=== PATIENT | female | born 1955 | race Caucasian/White ===

== ENCOUNTER → 2017-07-20 09:47 | Outpatient (CLI) | payer OTHER, SELFPAY ==
[2017-07-24 18:30] LABS: HPV Reflexed? NOT INDICATED
== END ==
PROVIDERS: Visit Provider Obstetrics & Gynecology
DX: Z12.4 Encounter for screening for malignant neoplasm of cervix (principal)
CPT/HCPCS: 88175; G0145

== ENCOUNTER → 2017-08-21 11:30 | Outpatient (CLI) | payer OTHER, SELFPAY ==
--- NOTE | 2017-08-21 11:33 | BD_ITS ---
STUDY: DUAL ENERGY X-RAY ABSORPTIOMETRY / DXA REASON FOR EXAM: Female, 62 years old. Early menopause. Loss of height. TECHNIQUE: Bone Mineral Density (BMD) measurements of lumbar spine and bilateral hips were obtained. COMPARISON: Comparison is made with prior examination dated May 30, 2011. FINDINGS: Lumbar Spine (L1-L4): g/cm2 (1.086) / T-score (-1.0) / Z-score (0.4) Findings are suggestive of normal bone density with a low fracture risk. Left Femur Total: g/cm2 (0.747) / T-score (-2.1) / Z-score (-1.0) Left Femoral Neck: g/cm2 (0.766) / T-score (-2.0) / Z-score (-0.6) Right Femur Total: g/cm2 (0.816) / T-score (-1.5) / Z-score (-0.5) Right Femoral Neck: g/cm2 (0.805) / T-score (-1.7) / Z-score (-0.4) The T-Scores on the most recent prior examination were: Lumbar Spine (L1-L4): There has been improvement of bone density since the previous examination. Left Femur Total: which represents a worsening of 6.6%. Right Femur Total: which represents a worsening of 2.3%. BD/Dexa Bone Density Study IMPRESSION: The patient is considered osteopenic as outlined below according to World Isra Organization (WHO) criteria with a moderate fracture risk. There has been worsening of bone density since the previous examination. Reference Information: The T-score is the number of standard deviations above or below the standard which is normal for young adults at their peak bone mineral density. The World Health Organization (WHO) interprets the T-scores as follows: Above -1 Normal bone density Between -1 and -2.5 Osteopenia Equal to / or below -2.5 Osteoporosis As a practical clinical guideline, osteopenia may be graded as follows: Mild -1 through -1.5 Moderate -1.6 through -2.0 Severe -2.1 through -2.4 The Z-score is the number of standard deviations above or below age-matched controls. A Z-score of less than -1.5 would be considered abnormal. References: 1. NIH Osteoporosis and Related Bone Diseases http://www.osteo.org 2. International Society for Clinical Densitometry http://www.iscd.org 3. National Osteoporosis Foundation http://www.nof.org Electronically Signed: Fernando Cruz MD at 15:28 EDT Tel [phone], Service support ,
--- NOTE | 2017-08-21 11:52 | BI_ITS ---
MAMMOGRAPHY - BILATERAL SCREENING REASON FOR EXAM: Female, 62 years old. Routine annual screening examination. PERTINENT HISTORY: Aunt with breast cancer. TECHNIQUE: Digital bilateral breast tay (3D mammographic acquisition) in the CC and MLO projections. 2-D mediolateral oblique (MLO) and craniocaudad (CC) views of both breasts were obtained. CAD: Full Field Digital Mammography with Computer Added Detection was performed. COMPARISON: Comparison is made with prior study dated May 30, 2011. FINDINGS: Breast Composition: The breasts are extremely dense, which lowers the sensitivity of mammography. There are no dominant masses or suspicious calcifications. No other significant abnormalities are identified. There has been no significant change since the prior study. BI/SCREENING MAMM (CAD), BILAT IMPRESSION: Stable bilateral screening mammogram. Yearly follow-up mammogram recommended. (A) ASSESSMENT CATEGORY: BIRADS Category 1: Negative. A letter regarding these results will be sent to the patient by the facility within 30 days. Approximately 10% of breast cancers are not detected by mammography. A normal mammogram should not delay biopsy of a clinically suspicious abnormality. [id number] Electronically Signed: Fernando Cruz MD at 13:51 EDT Tel [phone], Service support ,
== END ==
PROVIDERS: Visit Provider Obstetrics & Gynecology
DX: Z12.31 Encounter for screening mammogram for malignant neoplasm of breast (principal); Z13.820 Encounter for screening for osteoporosis
CPT/HCPCS: 77063; 77067; 77080

== ENCOUNTER → 2017-09-04 14:57 | Outpatient (CLI) | payer OTHER, SELFPAY ==
[2017-09-04 17:18] LABS: Calcium,Total 8.6 mg/dL (8.5-10.1)
[2017-09-04 17:35] LABS: Vitamin D,25 Hydroxy 8.7 ng/mL (29.95-100.01)
== END ==
PROVIDERS: Visit Provider Obstetrics & Gynecology
DX: M85.9 Disorder of bone density and structure, unspecified (principal)
CPT/HCPCS: 36415; 82306; 82310

== ENCOUNTER → 2017-09-19 08:47 | Outpatient (CLI) | payer OTHER, SELFPAY ==
[2017-09-19 12:35] LABS: Alkaline Phosphatase 85 U/L (45-117); Anion Gap 8 (5-15); BUN 13 mg/dL (7-18); BUN/Creat Ratio 13.7 RATIO (10-20); Calcium,Total 8.9 mg/dL (8.5-10.1); Chloride 107 mmol/L (98-107); Creatinine, Serum 0.95 mg/dL (0.55-1.02); EST Glomerular Filtration Rate 64 mL/min (>60); Est Glom Filt Rate - Afr Amer 77 mL/min (>60); Glucose 95 mg/dL (74-106); Phosphorus 3.8 mg/dL (2.5-4.9); Sodium Level 139 mmol/L (136-145)
[2017-09-20 08:23] LABS: PTHIN 54.3 pg/mL (18.4-80.1)
== END ==
PROVIDERS: Visit Provider Obstetrics & Gynecology
DX: E55.9 Vitamin D deficiency, unspecified (principal)
CPT/HCPCS: 36415; 80048; 83516; 83970; 84075; 84100

== ENCOUNTER 2018-04-21 09:55 | Emergency (ER) | payer OTHER, SELFPAY ==
[2018-04-21 09:57] VITALS: BP 110/93; PULSE 135; RESP 23; TEMP 36.4; O2SAT 100; BMI 23.3
--- NOTE | 2018-04-21 10:10 | EKG12_ITS ---
Test Reason : REPEAT Blood Pressure : / mmHG Vent. Rate : 125 BPM Atrial Rate : 096 BPM P-R Int : 000 ms QRS Dur : 090 ms QT Int : 314 ms P-R-T Axes : 000 078 043 degrees QTc Int : 453 ms Accelerated Junctional rhythm Abnormal ECG Confirmed by FRANCINE CARMICHAEL MD ([id number]), field map editor RENARD SNEED ([id number]) on 04/22/2018 5:27:35 PM Referred By: YARED Confirmed By:FRANCINE CARMICHAEL MD
--- NOTE | 2018-04-21 10:10 | EKG12_ITS ---
Test Reason : TACHYCARDIA Blood Pressure : / mmHG Vent. Rate : 133 BPM Atrial Rate : 129 BPM P-R Int : 000 ms QRS Dur : 088 ms QT Int : 300 ms P-R-T Axes : 000 079 075 degrees QTc Int : 446 ms Supraventricular tachycardia Otherwise normal ECG Confirmed by AMOL NAPOLES, FRANCINE ([id number]), acquisition editor RENARD SNEED ([id number]) on 04/22/2018 5:16:25 PM Referred By: MAURO/YARED Confirmed By:FRANCINE CARMICHAEL MD
--- NOTE | 2018-04-21 10:10 | RAD_ITS ---
STUDY: X-RAY CHEST REASON FOR EXAM: Female, 62 years old. Shortness of breath. Palpitations and lightheadedness. TECHNIQUE: Single AP portable view of the chest. COMPARISON: Comparison is made with prior study dated March 06, 2017. FINDINGS: EKG electrodes are seen. Hyperinflation Scattered calcified granulomas. There is no demonstrated pleural abnormality. Normal size heart. Normal mediastinum and eliana. Normal visualized pulmonary arteries. Normal visualized aortic arch and descending thoracic aorta. There are diffuse degenerative changes of the visualized thoracic spine. Normal visualized ribs, clavicles, and shoulders. Small hiatal hernia. RAD/Chest 1 View (Portable) IMPRESSION: Hyperinflation. No acute abnormality is seen. Electronically Signed: Fernando Cruz MD at 10:57 EST Tel [phone], Service support ,
[2018-04-21 10:24] LABS: Absolute Lymphocyte Count 2.11 X10^3/ul (0.83-4.51); Absolute Neutrophil Count 5.4 X10^3/uL (2.0-7.7); Basophil# 0.01 X10^3/uL; Basophil% 0.1 % (0-1); Eosinophil# 0.03 X10^3/uL; Eosinophils% 0.4 % (0-5); Hemoglobin 15.7 g/dl (12.0-15.0); Lymphocyte # 2.11 X10^3/ul (4.0); Lymphocyte % 25.3 % (19-41); Mean Corp Hgb Conc 32.7 g/gl (32-36); Mean Corpuscular Hgb 30.7 pg (27.0-32.0); Mean Corpuscular Volume 93.8 fL (81-99); Mean Platelet Vol. 9.3 fl (6.2-12.0); Monocyte# 0.79 X10^3/uL; Monocyte% 9.5 % (0-10); Neutrophil # 5.38 X10^3/uL (2.7-7.7); Neutrophil % 64.6 % (47-70); Platelet Count 224 K/mm3 (150-450); RBC Distribution Width CV 13.4 % (11.6-14.6); RBC Distribution Width SD 46.4 fl (35.1-43.9); Red Blood Count 5.12 M/mm3 (4.2-5.4); White Blood Count 8.3 K/mm3 (4.4-11.0)
[2018-04-21 10:25] LABS: POSITIVE COUNT NO; POSITIVE DIFFERENTIAL NO; POSITIVE MORPHOLOGY NO
[2018-04-21 10:41] LABS: ALB/GLOB Ratio 1.3 RATIO (0.9-2.4); AST(SGOT) 18 U/L (15-37); Alanine Aminotransfer ALT/SGPT 20 U/L (13-56); Albumin, Serum 3.8 g/dL (3.2-5.0); Alkaline Phosphatase 96 U/L (45-117); Anion Gap 12 (5-15); BUN 18 mg/dL (7-18); BUN/Creat Ratio 16.2 RATIO (10-20); Calcium,Total 8.8 mg/dL (8.5-10.1); Chloride 107 mmol/L (98-107); Creatinine, Serum 1.11 mg/dL (0.55-1.02); EST Glomerular Filtration Rate 53 mL/min (>60); Est Glom Filt Rate - Afr Amer 64 mL/min (>60); Globulin 2.9 g/dL (2.2-4.2); Glucose 186 mg/dL (74-106); Potassium 4.2 mmol/L (3.5-5.1); Protein, Total 6.7 g/dL (6.4-8.2); Sodium Level 139 mmol/L (136-145); Thyroid Stim Hormone (TSH) 4.72 uIU/mL (0.358-3.74)
[2018-04-21] MEDS: dilTIAZem 25 MG/5 ML Vial 10 MG IV BOLUS (10:43)
[2018-04-21 10:47] VITALS: BP 95/76; PULSE 75; RESP 18; O2SAT 92
--- NOTE | 2018-04-21 10:52 | EKG12_ITS ---
Test Reason : REPEAT#2 Blood Pressure : / mmHG Vent. Rate : 068 BPM Atrial Rate : 068 BPM P-R Int : 146 ms QRS Dur : 078 ms QT Int : 380 ms P-R-T Axes : 067 073 065 degrees QTc Int : 404 ms Sinus rhythm with Premature supraventricular complexes Otherwise normal ECG Confirmed by AMOL NAPOLES, FRANCINE ([id number]), commercial production editor RENARD SNEED ([id number]) on 04/22/2018 5:25:02 PM Referred By: YARED Confirmed By:FRANCINE CARMICHAEL MD
[2018-04-21 11:11] VITALS: BP 92/65; PULSE 64; RESP 19; O2SAT 96
[2018-04-21 11:37] LABS: Prothrombin Time (Protime)PT. 13.1 SECONDS (11.7-14.9)
--- NOTE | 2018-04-21 11:45 | ED.VISSUMM ---
- ER Visit Summary Date of Service: 04/21/18 Chief Complaint: Lightheaded History of Present Illness: The patient is a 62 F who states that today he felt very weak and lightheaded. Friend took her heart rate and blood pressure notes that her heart rate was around 140. She states she has a remote history of atrial fibrillation and from time to time may have a brief episode but nothing like this. She denies any chest pain. She does note some shortness of breath. Physical Examination: 110/93 a rate of 135 respirations are 23 pulse ox 100% temperature 97 Gen: Well-nourished well-developed Head: Normocephalic atraumatic Eyes: Perrl EOMI ENT: TMs clear no rhinorrhea moist mucous membranes Neck: Supple no lymphadenopathy no JVD nontender CVS: Regular rate tachycardic rhythm no murmurs normal S1-S2 Respiratory: No distress clear to auscultation bilaterally chest nontender Abdomen: Soft nontender nondistended normal bowel sounds no masses Back: Nontender Extremity: Nontender no edema Skin: Normal color no rash Neuro: alert orientated ?3 CN II-XII intact normal strength sensation reflexes gait cerebellar Psych: Normal affect normal mood Test Results: EKG shows a supraventricular tachycardia. He increased his paper speed to 50 and did not see any flutter waves I do not see any obvious fibrillation or any U waves. Basic labs were normal. TSH was slightly elevated 4.72. Chest x-ray normal mediastinal silhouette Emergency Department Course and Treatment: Patient received a dose of Cardizem and she spontaneously converted to a normal sinus rhythm and this was confirmed by EKG. Spoke with for the patient will follow-up as an outpatient return if worsening or concerns Impression: 1. Supraventricular tachycardia 2. Chemical cardioversion This note was generated with [employer] dictation software. It may contain incorrect words, spelling, and punctuation that were not noted in review of the chart prior to signing ED Disposition - Plan for ED Patient: Disposition: Home or Assisted Living Chief Complaint: Palpitations Instructions: ED Tachycardia Pat PSVT Referrals: Gilmar Biggs MD [STAFF PHYSICIAN] - As soon as possible
[2018-04-21 12:10] VITALS: BP 100/57; PULSE 62; RESP 15; O2SAT 97
[2018-04-21 12:49] LABS: Partial Thromboplast Time 34.5 Seconds (24.1-36.2)
== END 2018-04-21 12:11 | disposition home or self-care (01) ==
PROVIDERS: Emergency Provider Emergency Medicine
DX: I47.1 Supraventricular tachycardia (principal); I48.91 Unspecified atrial fibrillation
CPT/HCPCS: 71045; 80053; 83735; 84443; 84484; 85025; 85610; 85730; 93005; 99284; A4216

== ENCOUNTER → 2018-05-07 06:51 | Outpatient (CLI) | payer OTHER, SELFPAY ==
[2018-04-23 10:47] VITALS: BMI 23.3
--- NOTE | 2018-05-07 06:54 | ECHOD_ITS ---
Reason For Study: ARRHYTHMIA Procedure This was a 2D Doppler, Color Flow transthoracic echocardiogram. Exam performed in department. Left Ventricle Normal LV size. The estimated ejection fraction is 60 %. Left ventricular systolic function is normal. No evidence for diastolic dysfunction. No regional wall motion abnormalities noted. Right Ventricle Normal RV size. Normal systolic function. Atria Normal left atrium. Normal right atrium. Mitral Valve Normal mitral valve. Mild (1+) eccentric mitral valve insufficiency. Tricuspid Valve Normal tricuspid valve. Aortic Valve Trisinus/trileaflet aortic valve. Mild focal aortic valve calcification. Pulmonic Valve Normal pulmonic valve. Great Vessels Normal aortic root. The pulmonary artery is normal size. Normal inferior vena cava. Pericardium/Pleural No pericardial effusion. MMode/2D Measurements & Calculations LVIDd: 3.9 cm IVSd: 0.81 cm Ao root diam: 3.0 cm LVIDs: 2.8 cm LVPWd: 0.87 cm RVDd: 3.0 cm FS: 28.8 % LAV(MOD-bp): 39.3 ml LVAd ap4: 25.4 cm2 SV(MOD-sp4): 41.0 ml LAV(MOD-bp) Indexed: 22.4 ml/m2 EDV(MOD-sp4): 66.4 ml LAV(MOD-sp2): 42.4 ml EDV(sp4-el): 69.7 ml LAV(MOD-sp4): 33.8 ml LVAs ap4: 13.3 cm2 ESV(MOD-sp4): 25.4 ml ESV(sp4-el): 25.6 ml EF(MOD-sp4): 61.7 % EF(sp4-el): 63.2 % SV(sp4-el): 44.1 ml LA A4 area: 14.9 cm2 LA dimension(2D): 2.6 cm RA A4 area: 12.4 cm2 Time Measurements MV dec time: 0.27 sec Doppler Measurements & Calculations MV E max lisandro: 68.0 cm/sec Lat Peak E' Lisandro: 11.3 cm/sec Med Peak E' Lisandro: 8.8 cm/sec MV A max lisandro: 47.0 cm/sec E/E' lat: 6.0 E/E' med: 7.7 MV E/A: 1.4 Ao V2 max: 101.0 cm/sec LV V1 max: 93.7 cm/sec PA V2 max: 72.6 cm/sec Ao max P.1 mmHg LV V1 max P.5 mmHg TR max lisandro: 208.0 cm/sec TR max P.4 mmHg Interpretation Summary Normal LV size. The estimated ejection fraction is 60 %. Left ventricular systolic function is normal. No evidence for diastolic dysfunction. Structurally normal valves. Ordering Physician: Gilmar Biggs Referring Physician: Gilmar Biggs Performed By: Gin Edmondson, NIKOLAY, RVT
--- NOTE | 2018-05-07 11:06 | STRESSREP ---
Stress Test Report Exercise myocardial perfusion stress test. 62-year-old lady with a history of supraventricular tachycardia. Medications none. Stress protocol: Resting EKG demonstrates sinus bradycardia with a rate of 57 bpm occasional premature ventricular complexes noted. The patient exercised according to the regular Enrrique protocol for a total duration of 9 minutes. The maximum heart rate attained was 133 bpm which was 84% of maximum predicted heart rate the maximum workload was 10.1 metabolic equivalents. At rest there were no ST or T wave changes noted suggest ischemia at peak exercise upsloping ST changes only were noted with normally the criteria for ischemia. Occasional premature ventricular complexes were noted. There were no ST or T wave changes noted suggest abnormal flow reserve or ischemia. The resting blood pressure is 108/80 with a peak blood pressure 170/86. Myocardial perfusion protocol. 11.4 mCi of technetium 99m sestamibi was injected at rest. The patient exercised for total duration of 9 minutes at peak exercise 31.9 mCi of technetium 99m sestamibi was injected stress images were obtained stress and rest images were reconstructed and compared in the short axis vertical long horizontal long axis. Gated images were also obtained Perfusion SPECT analysis: Review of the stress images demonstrate normal uptake of tracer noted in all areas of the myocardium. The resting images similarly demonstrate normal uptake of tracer noted in all areas of myocardium. There may be mild anterior breast wall attenuation noted. No obvious reversibility is noted suggest ischemia. Gated SPECT analysis: The gated ejection fraction is noted to be 73%. Conclusion: Normal exercise myocardial perfusion stress test at a high workload. Preserved ejection fraction. No arrhythmias noted.
== END ==
PROVIDERS: Referring Provider Internal Medicine Cardiovascular Disease; Visit Provider Internal Medicine Cardiovascular Disease
DX: I47.1 Supraventricular tachycardia (principal); R07.9 Chest pain, unspecified
CPT/HCPCS: 78452; 93017; 93306; A9500; A4216

== ENCOUNTER → 2018-05-23 08:07 | Outpatient (CLI) | payer OTHER, SELFPAY ==
[2018-05-21 14:33] VITALS: BMI 23.3
[2018-05-23 10:03] LABS: Cholesterol 201 mg/dL (200); High Density Lipoprotein 45 mg/dL; T4 Free Direct 1.04 ng/dL (0.76-1.46); Thyroid Stim Hormone (TSH) 5.41 uIU/mL (0.358-3.74); Triglycerides 152 mg/dL; Very Low Density Lipoprotein 30 mg/dL (5-40); Vitamin D,25 Hydroxy 16.7 ng/mL (29.95-100.01)
== END ==
PROVIDERS: Family Provider Internal Medicine; PCP Internal Medicine; Referring Provider Internal Medicine; Visit Provider Internal Medicine
DX: E55.9 Vitamin D deficiency, unspecified (principal); E07.9 Disorder of thyroid, unspecified; I47.1 Supraventricular tachycardia
CPT/HCPCS: 36415; 80061; 82306; 84439; 84443

== ENCOUNTER 2018-05-25 00:11 | Emergency (ER) | payer OTHER, SELFPAY ==
[2018-05-21 14:33] VITALS: BMI 23.3
[2018-05-25 00:12] VITALS: BP 136/93; PULSE 80; RESP 16; TEMP 36.1; O2SAT 98; BMI 23.8
[2018-05-25] MEDS: Naproxen 500 MG Tablet PO (01:15)
[2018-05-25] MEDS: Diphth,Pertuss(Acell),Tet Vac 0.5 ML Vial IM (01:15)
--- NOTE | 2018-05-25 01:47 | ED.VISSUMM ---
- ER Visit Summary Date of Service: 05/25/18 Chief Complaint: Dog bite to face History of Present Illness: The patient is a 62 F who presents with dog bites to the face. She was bit by her own 50 pound dog tonight. She sustained lacerations to the upper lip and nose as well as some superficial injuries to her right hand. Physical Examination: Afebrile vitals stable There is a skin tear to the right cheek, there is a 2 cm laceration of the nasal septum with exposed cartilage, triangular shaped laceration of the left upper lip with tissue loss involving the vermilion border about 2 x 1 cm Heart regular rate and rhythm Lungs clear There are superficial puncture wounds to the base of the right thumb Test Results: Not indicated Emergency Department Course and Treatment: Tetanus immunization was updated and patient was given naproxen for pain. Given complex facial lacerations I do feel she needs plastic surgery consultation. Plastics is not available at this facility at this time. Patient discussed with Elmer rodriguez and accepted by the trauma service as an ER to ER transfer for plastics consultation. Treatment Plan: [] Disposition: Transfer Impression: Facial lacerations Dog bites to face This note was generated with [employer] dictation software. It may contain incorrect words, spelling, and punctuation that were not noted in review of the chart prior to signing ED Disposition - Plan for ED Patient: Referrals: Ginny Ferrell MD [Primary Care Provider] -
[2018-05-25 02:32] VITALS: BP 134/69; PULSE 68; RESP 16; O2SAT 97
[2018-05-25 02:34] VITALS: BP 134/68; PULSE 69; RESP 16; O2SAT 97
== END 2018-05-25 02:35 | disposition short-term general hospital (02) ==
PROVIDERS: Emergency Provider Emergency Medicine; Family Provider Internal Medicine; PCP Internal Medicine
DX: S01.81XA Laceration without foreign body of other part of head, initial encounter (principal); W54.0XXA Bitten by dog, initial encounter; Y93.9 Activity, unspecified; Y92.9 Unspecified place or not applicable; Y99.9 Unspecified external cause status; Z23 Encounter for immunization; Z72.0 Tobacco use
CPT/HCPCS: 90715; 99283

== ENCOUNTER → 2019-06-22 16:44 | Outpatient (CLI) | payer OTHER, SELFPAY ==
[2019-05-13 14:56] VITALS: BMI 23.3
[2019-06-22 17:24] LABS: D-Dimer Quantitative (DVT/PE) 0.41 FEU/ug/m (0.27-0.49)
== END ==
PROVIDERS: Nurse Practitioner Adult Health; PCP Internal Medicine
DX: R22.42 Localized swelling, mass and lump, left lower limb (principal)
CPT/HCPCS: 36415; 85379

== ENCOUNTER → 2019-10-16 15:03 | Outpatient (CLI) | payer OTHER, SELFPAY ==
[2019-10-16 14:35] VITALS: BMI 23.8
[2019-10-16 16:49] LABS: Absolute Lymphocyte Count 2.86 X10^3/uL (0.83-4.51); Absolute Neutrophil Count 3.4 X10^3/uL (2.0-7.7); Basophil# 0.03 X10^3/uL; Basophil% 0.4 % (0-1); Eosinophil# 0.14 X10^3/uL; Hemoglobin 14.8 g/dL (12.0-15.0); Lymphocyte # 2.86 X10^3/ul (4.0); Lymphocyte % 40.1 % (19-41); Mean Corp Hgb Conc 32.2 g/dL (32-36); Mean Corpuscular Hgb 31.2 pg (27.0-32.0); Mean Corpuscular Volume 96.8 fL (81-99); Mean Platelet Vol. 9.6 fl (6.2-12.0); Monocyte% 9.8 % (0-10); NRBC Flagged by Analyzer 0 % (0-5); Neutrophil # 3.39 X10^3/uL (2.7-7.7); Neutrophil % 47.6 % (47-70); Platelet Count 221 K/mm3 (150-450); RBC Distribution Width CV 12.4 % (11.6-14.6); RBC Distribution Width SD 45.1 fl (35.1-43.9); Red Blood Count 4.75 M/mm3 (4.2-5.4); White Blood Count 7.1 K/mm3 (4.4-11.0)
[2019-10-16 17:04] LABS: Vitamin D,25 Hydroxy 23.2 ng/mL
[2019-10-16 17:10] LABS: ALB/GLOB Ratio 1.2 RATIO (0.9-2.4); AST(SGOT) 15 U/L (15-37); Alanine Aminotransfer ALT/SGPT 18 U/L (13-56); Albumin, Serum 3.8 g/dL (3.2-5.0); Alkaline Phosphatase 91 U/L (45-117); Anion Gap 5 (5-15); BUN 17 mg/dL (7-18); BUN/Creat Ratio 17.9 RATIO (10-20); Calcium,Total 8.8 mg/dL (8.5-10.1); Chloride 107 mmol/L (98-107); Cholesterol 195 mg/dL (200); Creatinine, Serum 0.95 mg/dL (0.55-1.02); EST Glomerular Filtration Rate 63 mL/min (>60); Est Glom Filt Rate - Afr Amer 76 mL/min (>60); Globulin 3.1 g/dL (2.2-4.2); Glucose 79 mg/dL (74-106); High Density Lipoprotein 44 mg/dL; Potassium 4.3 mmol/L (3.5-5.1); Protein, Total 6.9 g/dL (6.4-8.2); Sodium Level 141 mmol/L (136-145); Thyroid Stim Hormone (TSH) 2.68 uIU/mL (0.358-3.74); Triglycerides 194 mg/dL; Very Low Density Lipoprotein 39 mg/dL (5-40)
== END ==
PROVIDERS: PCP Internal Medicine; Referring Provider Internal Medicine; Visit Provider Internal Medicine
DX: Z13.29 Encounter for screening for other suspected endocrine disorder (principal); E78.5 Hyperlipidemia, unspecified; E55.9 Vitamin D deficiency, unspecified
CPT/HCPCS: 36415; 80053; 80061; 82306; 84439; 84443; 85025

== ENCOUNTER → 2019-11-18 10:14 | Outpatient (CLI) | payer OTHER, SELFPAY ==
[2019-10-16 14:35] VITALS: BMI 23.8
--- NOTE | 2019-11-18 10:15 | BI_ITS ---
MAMMOGRAPHY - BILATERAL SCREENING REASON FOR EXAM: Female, 64 years old. Routine annual screening examination. PERTINENT HISTORY: Aunt with breast cancer. Remote right excisional breast biopsy and bilateral breast reduction surgery. TECHNIQUE: Digital bilateral breast corey (3D mammographic acquisition) in the CC and MLO projections. 2-D mediolateral oblique (MLO) and craniocaudad (CC) views of both breasts were obtained. CAD: Full Field Digital Mammography with Computer Added Detection was performed. COMPARISON: Comparison is made with prior study dated 08/21/2017 and 05/30/2011. FINDINGS: Breast Composition: The breasts are extremely dense, which lowers the sensitivity of mammography. There are no dominant masses or suspicious calcifications. No other significant abnormalities are identified. There has been no significant change since the prior study. BI/SCREEN MAMM (CAD) W/COREY BILAT IMPRESSION: Stable bilateral screening mammogram. Yearly follow-up mammogram recommended. (A) ASSESSMENT CATEGORY: BIRADS Category 1: Negative. A letter regarding these results will be sent to the patient by the facility within 30 days. Approximately 10% of breast cancers are not detected by mammography. A normal mammogram should not delay biopsy of a clinically suspicious abnormality. [id number] Electronically Signed: Fernando Cruz, at 14:11 EDT , Service support ,
--- NOTE | 2019-11-18 10:18 | BD_ITS ---
STUDY: DUAL ENERGY X-RAY ABSORPTIOMETRY / DXA REASON FOR EXAM: Female, 64 years old. 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 COMPARISON: Comparison is made with prior study dated 08/21/2017. FINDINGS: Lumbar Spine (L1-L4): g/cm2 (0.977) / T-score (-1.7) / Z-score (-0.2) Findings are suggestive of osteopenia with a moderate fracture risk. Left Femur Total: g/cm2 (0.731) / T-score (-2.2) / Z-score (-1.0) Left Femoral Neck: g/cm2 (0.814) / T-score (-1.6) / Z-score (-0.2) Right Femur Total: g/cm2 (0.801) / T-score (-1.6) / Z-score (-0.5) Right Femoral Neck: g/cm2 (0.814) / T-score (-1.6) / Z-score (-0.2) The T-Scores on the most recent prior examination were: Lumbar Spine (L1-L4): There has been worsening of bone density since the previous examination. Left Femur Total: which represents a worsening of 2.1%. Right Femur Total: which represents a worsening of 1.8%. BD/Dexa Bone Density Study IMPRESSION: The patient is considered osteopenic as outlined below according to World Isra Organization (WHO) criteria with a high fracture risk. There has been worsening of bone density since the previous examination. Reference Information: The T-score is the number of standard deviations above or below the standard which is normal for young adults at their peak bone mineral density. The World Health Organization (WHO) interprets the T-scores as follows: Above -1 Normal bone density Between -1 and -2.5 Osteopenia Equal to / or below -2.5 Osteoporosis As a practical clinical guideline, osteopenia may be graded as follows: Mild -1 through -1.5 Moderate -1.6 through -2.0 Severe -2.1 through -2.4 The Z-score is the number of standard deviations above or below age-matched controls. A Z-score of less than -1.5 would be considered abnormal. References: 1. NIH Osteoporosis and Related Bone Diseases http://www.osteo.org 2. International Society for Clinical Densitometry http://www.iscd.org 3. National Osteoporosis Foundation http://www.nof.org Electronically Signed: Fernando Cruz, at 15:04 EDT , Service support ,
== END ==
PROVIDERS: PCP Internal Medicine; Referring Provider Internal Medicine; Visit Provider Internal Medicine
DX: Z12.31 Encounter for screening mammogram for malignant neoplasm of breast (principal); M81.0 Age-related osteoporosis without current pathological fracture; Z87.891 Personal history of nicotine dependence; Z80.3 Family history of malignant neoplasm of breast
CPT/HCPCS: 77063; 77067; 77080

== ENCOUNTER → 2021-08-30 | Outpatient (CLI) | payer MEDICARE, SELFPAY ==
--- NOTE | 2021-08-30 11:31 | RAD_ITS ---
STUDY: XR Shoulder Min 2 Views REASON FOR EXAM: Female, 66 years old. Left Shoulder Pain TECHNIQUE: XR Shoulder Min 2 Views LEFT COMPARISON: None. FINDINGS: Normal glenohumeral articulation. Normal acromioclavicular joint. Normal acromion. Normal humeral head and visualized proximal humerus. The soft tissue structures are unremarkable. Normal visualized pulmonary apex. RAD/Shoulder min 2 Views IMPRESSION: There are no acute findings of the shoulder. Electronically Signed: Abel Irving MD at 16:23 EDT ,
--- NOTE | 2021-08-30 11:31 | RAD_ITS ---
STUDY: X-RAY CHEST REASON FOR EXAM: Female, 66 years old. Cough, Chest tightness TECHNIQUE: PA and lateral views of the chest. COMPARISON: 04/21/2018 FINDINGS: There is hyperinflation of the lungs consistent with chronic obstructive lung disease (COPD). There is no demonstrated pleural abnormality. Normal size heart. Normal mediastinum and eliana. Normal visualized pulmonary arteries. Normal visualized aortic arch and descending thoracic aorta. Normal visualized thoracic spine. Normal visualized ribs, clavicles, and shoulders. There is no demonstrated abnormality of the visualized soft tissue structures of the upper abdomen. RAD/Chest PA and Lateral IMPRESSION: Emphysema without pneumonia or atelectasis Electronically Signed: Saravanan Melara MD at 16:58 EDT ,
[2021-08-30 12:27] LABS: Absolute Lymphocyte Count 2.67 X10^3/uL (0.83-4.51); Absolute Neutrophil Count 3.2 X10^3/uL (2.0-7.7); Basophil# 0.03 X10^3/uL; Basophil% 0.4 % (0-1); Eosinophil# 0.11 X10^3/uL; Eosinophils% 1.6 % (0-5); Hemoglobin 15.4 g/dL (12.0-15.0); Lymphocyte # 2.67 X10^3/ul (0.83-4.51); Lymphocyte % 39.9 % (19-41); Mean Corp Hgb Conc 32.8 g/dL (32-36); Mean Corpuscular Hgb 31.6 pg (27.0-32.0); Mean Corpuscular Volume 96.5 fL (81-99); Mean Platelet Vol. 9.6 fl (6.2-12.0); Monocyte# 0.71 X10^3/uL; Monocyte% 10.6 % (0-10); NRBC Flagged by Analyzer 0 % (0-5); Neutrophil # 3.15 X10^3/uL (2.7-7.7); Neutrophil % 47.2 % (47-70); Platelet Count 249 K/mm3 (150-450); RBC Distribution Width CV 12.5 % (11.6-14.6); RBC Distribution Width SD 45.2 fl (35.1-43.9); Red Blood Count 4.87 M/mm3 (4.2-5.4); White Blood Count 6.7 K/mm3 (4.4-11.0)
[2021-08-30 12:42] LABS: ALB/GLOB Ratio 1.3 RATIO (0.9-2.4); AST(SGOT) 24 U/L (15-37); Alanine Aminotransfer ALT/SGPT 30 U/L (13-56); Albumin, Serum 4.1 g/dL (3.2-5.0); Alkaline Phosphatase 100 U/L (45-117); Anion Gap 3 (5-15); BUN 15 mg/dL (7-18); Calcium,Total 9.3 mg/dL (8.5-10.1); Chloride 107 mmol/L (98-107); Creatinine, Serum 0.94 mg/dL (0.55-1.02); EST Glomerular Filtration Rate 64 mL/min (>60); Est Glom Filt Rate - Afr Amer 77 mL/min (>60); Globulin 3.1 g/dL (2.2-4.2); Glucose 92 mg/dL (74-106); Potassium 4.6 mmol/L (3.5-5.1); Protein, Total 7.2 g/dL (6.4-8.2); Sodium Level 139 mmol/L (136-145)
[2021-08-30 12:45] LABS: Vitamin D,25 Hydroxy 20.8 ng/mL
== END | disposition home or self-care (01) ==
PROVIDERS: PCP Internal Medicine; Referring Provider Internal Medicine; Visit Provider Internal Medicine
DX: M25.512 Pain in left shoulder (principal); J40 Bronchitis, not specified as acute or chronic; F17.200 Nicotine dependence, unspecified, uncomplicated; E55.9 Vitamin D deficiency, unspecified
CPT/HCPCS: 36415; 71046; 73030; 80053; 82306; 85025

== ENCOUNTER → 2021-09-07 | Outpatient (CLI) | payer MEDICARE, SELFPAY ==
--- NOTE | 2021-09-08 10:05 | PFT ---
INTRODUCTION: The patient is a 66-year-old female that presents for pulmonary function studies secondary to a diagnosis of chronic cough. Respiratory therapy reported good patient effort. Bronchodilators were used during testing. INTERPRETATION: Forced expiration spirometry demonstrates the presence of a moderately severe large airways obstructive ventilatory defect. There was a significant response to aerosolized bronchodilators. Spirograms are of good quality but do not plateau indicating slow emptying of the lungs. Body plethysmography was performed and reveals lung volumes to be within normal limits. Diffusing capacity by single breath CO is reduced at 59% of predicted. IMPRESSION: Partially reversible moderately severe large airways obstructive ventilatory defect with symmetric reduction in diffusing capacity.
== END | disposition home or self-care (01) ==
PROVIDERS: PCP Internal Medicine; Referring Provider Internal Medicine; Visit Provider Internal Medicine
DX: R05.3 Chronic cough (principal); J40 Bronchitis, not specified as acute or chronic
CPT/HCPCS: 94060; 94726; 94729; 97110; 97161

== ENCOUNTER 2021-09-26 12:30 | Outpatient (RCR) | payer MEDICARE, SELFPAY ==
--- NOTE | 2021-09-07 13:59 | HP.PTEVAL_ITS ---
Patient's Visit Information DEEJAY VAZQUEZ is a 66 year old F referred to Physical Therapy by Dr. Ginny Ferrell MD with a diagnosis of Left Shoulder Pain. Date of Evaluation: 09/07/21 Physical Therapist: Latanya Mcnally DPT - Visit Plan Frequency: 2x /Week Duration: 4 Weeks Plan: HEP Given IE: postural education, mid row (GTB), LAE (GTB), corner stretch, scapular retraction - Subjective Patient reports that she has left shoulder pain. Insidious onset in May- maybe from shoveling snow. Attempted pain patch, medication, ice, heat. Worst: 3- 4/10 Agg: sleeping on the left side, reaching back to get seatbelt, getting dressed/undressed. Eases: not moving it. Best: 0/10. Pain is located on the posterior delt- pain does not radiate to the neck but does radiate to the elbow. No N/T or decreased handstitching machine armhole feller strength. Describes the pain as sharp/shooting. Immediately goes away when getting out of the painful ranges. No NEWSOME, blurred vision or dizziness. Right hand dominate. She is active- she walks a 90# dog- does all her own yard/house work. 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 gave her Prednisone and it helped- still bothers her- finished then 3-4 nights ago. Feels like its coming back quickly. Sleep: disturbed- wants to sleep on her left and its uncomfortable. X-rays which were negative. PMHx: SVT, osteopenia Meds: metroprolol - Objective Posture: Fh, RS- can correct but does not maintain. Gait: no deviation noted- good arm swing and trunk rotation. Palpation: tender along infraspinatus, upper trap from the occiput to the tip of the acromion and bicipital groove. ROM: Cervical: WFL, Shoulder: Flexion/Abd: WFL pain from 90 degrees to 180 degrees, IR: L2, ER: 50 degrees. Strength: Shoulder: 4+/5 throughout, Elbow:5/5, Wrist: 5/5 Echo Technologist: equal to other side. - Special Tests L Shoulder Lift Off Test - Subscapular Tear: Negative L Shoulder Drop Sign - IS Test: Negative L Shoulder Empty Can - SS: Negative L Shoulder Belly Press - SupScap: Negative L Shoulder Neer - Impingement: Positive L Shoulder Moreno Kashif - Impingement: Positive - Balance/Special Test Scores Quick DASH Score: 15.9075 - Goals Goal 1:: Patient will be I with HEP and progression Goal Time Frame: 4-6 Weeks Goal 2:: Patient will maintain proper posture t/o tx session to demo increased scapular s/s Goal Time Frame: 4-6 Weeks Goal 3:: Patient will demo full AROM of the left shoulder without pain Goal Time Frame: 4-6 Weeks Goal 4:: Patient will report 80% improvement Goal Time Frame: 4-6 Weeks - Rehabilitation Potential Physical Therapy Diagnosis: Patient presents with hypomobility- she has decreased UE and scapular s/s, pain free ROM, and muscular endurance leading to poor posture and increased pain with ADL's. Rehabilitation Potential: Good - Anticipated Interventions Patient/Client Instruction: Educate patient on: Benefits of Fitness Program Therapeutic Exercise to Include: Strength training, Endurance training, Balance training, Coordination, Agility training, Body mechanics, Postural training, Flexibilty training, Dynamic Lumbar Stabilization, Scapular Strength/Stabilization For the Purpose of:: To improve muscle performance and motor function TENS: Yes Cryotherapy (ice pack, ice massage): Yes Thermo therapy (hot pack): Yes Ultrasound (thermal/non thermal): Yes Thank you for the opportunity to evaluate your patient. For Medicare and Medicare HMO plans, please review the plan of care and approve it. It will need to be FAXED BACK to us at [phone] for Medicare purposes. For Medicare only, by signing this I certify the plan of care. Please let me know if there are questions or concerns regarding this plan of care. Physician Signature:_ Date:
--- NOTE | 2021-10-18 14:41 | HP.PT.NRP ---
DEEJAY VAZQUEZ was seen in my office for initial evaluation on 09/07/21. The following Plan of Care was established for this patient: Initial Frequency: 2x /Week Initial Duration: 4 Weeks Patient/Client Instruction: Educate patient on: Benefits of Fitness Program Therapeutic Exercise to Include: Strength training, Endurance training, Balance training, Coordination, Agility training, Body mechanics, Postural training, Flexibilty training, Dynamic Lumbar Stabilization, Scapular Strength/Stabilization For the Purpose of:: To improve muscle performance and motor function TENS: Yes Cryotherapy (ice pack, ice massage): Yes Thermo therapy (hot pack): Yes Ultrasound (thermal/non thermal): Yes This patient was last seen in our office . Pertinent comments regarding their Physical therapy will appear below: Patient fell and broke foot- will d/c at this time. At this point I will be discontinuing this patient from physical therapy. I would be happy to see this patient again in the future if found appropriate by the physician. Thank you! Latanya Mcnally, [place] Balance/Gait/Functional tests - Balance/Special Test Scores Quick DASH Score: [phone]
== END 2021-09-26 19:00 | disposition home or self-care (01) ==
LOC: PT 12:30
PROVIDERS: PCP Internal Medicine; Referring Provider Internal Medicine; Visit Provider Internal Medicine
DX: M25.512 Pain in left shoulder (principal)
CPT/HCPCS: 97035; 97110; 97140; 97161

== ENCOUNTER 2021-09-29 19:02 | Emergency (ER) | payer MEDICARE, SELFPAY ==
[2021-09-29 19:03] VITALS: BP 157/138; PULSE 71; RESP 16; TEMP 36.6; O2SAT 99; BMI 21.4
--- NOTE | 2021-09-29 19:15 | RAD_ITS ---
STUDY: XR Ankle Min 3 Views REASON FOR EXAM: Female, 66 years old. ANKLE PAIN TECHNIQUE: XR Ankle Min 3 Views LEFT COMPARISON: None. FINDINGS: Normal visualized distal tibia and fibula. Normal medial and lateral malleoli. Normal tibiotalar articulation and ankle mortise. Slightly displaced fracture of the calcaneus extending to the tarsal sinus. The visualized subtalar, talonavicular, calcaneocuboid and tarsal articulations are normal. Normal talus, calcaneus, and tarsal bones. There is soft tissue swelling around the ankle. RAD/Ankle min 3 Views IMPRESSION: There is soft tissue swelling around the foot. Calcaneal fracture. Electronically Signed: Abel Irving MD at 19:44 EDT ,
--- NOTE | 2021-09-29 19:15 | RAD_ITS ---
EXAM: XR LEFT FOOT COMPLETE, 3 OR MORE VIEWS CLINICAL INDICATION: Trauma Technologist Notes FELL OFF LADDER, STUCK FOOT OUT TO STOP FALL, SMALL WOUND ON ANTERIOR ANKLE, SWELLING ON LATERAL SIDE TECHNIQUE: Frontal, lateral and oblique views of the left foot. This report was created using [employer] report generation technology. COMPARISON: None. FINDINGS: BONES/JOINTS: Degenerative findings of the first tarsal phalangeal joint. There is a talar spur. No acute fracture. No subluxation. Normal alignment. No sclerotic or destructive changes observed. SOFT TISSUES: Soft tissue swelling around the foot. Slightly displaced calcaneal fracture. Fracture does extend to the tarsal sinus. No radiopaque foreign body. RAD/Foot min 3 Views IMPRESSION: Soft tissue swelling around the foot. Slightly displaced calcaneal fracture. Fracture does extend to the tarsal sinus. Electronically Signed: Abel Irving MD at 19:45 EDT ,
--- NOTE | 2021-09-29 19:16 | ED.VIS.FALL ---
HPI HPI - Fall History of Present Illness Chief Complaint: Trauma Narrative Narrative: Patient with past medical history of SVT for which she takes metoprolol, presents with injury to her left ankle and foot. She states that she was painting a 12 foot wall and was coming down off of a ladder. Around the last 2 to 3 feet and fell onto her left foot and ankle. She denies hitting her head or loss of consciousness. Pain is worse with weightbearing and movement of her left foot. She noticed swelling over the dorsum of her left foot and has pain on her lateral ankle. No pain at the knee. She denies other injury. She scooted herself across the floor and called her sister to bring her to the emergency department. [facility] Medical History Anemia Arthritis Back pain Bronchitis Chronic cough Hypokalemia Left shoulder pain Nicotine dependence Osteopenia Paroxysmal supraventricular tachycardia Thyroid disorder Vitamin D deficiency Vitamin D deficiency Home Medications citracal Slow Release w/ D3 PO DAILY 12/15/19 [History Last Taken Unknown] metoprolol succinate 25 mg tablet,extended release 24 hr 25 mg PO DAILY #90 tabs 09/08/20 [Rx Last Taken Unknown] albuterol sulfate 90 mcg/actuation aerosol inhaler 2 puff inhalation Q6H PRN shortness of breath or wheezing #8.5 grams 08/30/21 [Rx Last Taken Unknown] prednisone 20 mg tablet 40 mg PO DAILY #10 tabs 08/30/21 [Rx Last Taken Unknown] budesonide-formoterol HFA 160 mcg-4.5 mcg/actuation aerosol inhaler (Symbicort) 2 puff inhalation Q12H #10.2 grams 09/08/21 [Rx Last Taken Unknown] oxycodone-acetaminophen 5 mg-325 mg tablet (Percocet) 1 tab PO Q6H PRN pain 3 days #12 tabs 09/29/21 [Rx Last Taken Unknown] Allergy/AdvReac Type Severity Reaction Status Date / Time No Known Allergies Allergy Verified 09/29/21 19:05 Family History Sister CVA (cerebral vascular accident) Arthritis Surgical History H/O lumpectomy H/O unilateral oophorectomy (2001) History of bilateral breast reduction surgery History of endometrial ablation History of tubal ligation Social History Smoking Status: Unknown if ever smoked Tobacco: How many years used: 40 alcohol intake: current alcohol intake frequency: holidays/special occasions only substance use type: does not use what type of physical activity do you participate in: walking and other details: yard work frequency: daily ROS ROS ED ROS Narrative Constitutional: No fever, no chills. HEENT: No sore throat. No neck pain. No loss of vision. No rhinorrhea. Cardiovascular: No chest pain. No palpitations. No pedal edema. Respiratory: No cough, no shortness of breath. Abdominal: No abdominal pain. No nausea. No vomiting. Genitourinary: No dysuria. No hematuria. Musculoskeletal: No myalgias. Left foot and ankle pain with mild swelling. Neurologic: No headaches. No dizziness. No lightheadedness. Skin: No rash. No change in color. Psychiatric: No depression. No anxiety. EXAM Physical Exam Narrative Exam Narrative: Afebrile. Vital signs noted. GCS 15. ABCs are intact. HEENT: Normocephalic. Atraumatic. PERRL, EOMI. Neck soft and supple. No point tenderness or step off. Cardiovascular: Regular rate and rhythm. No murmurs, rubs, or gallops appreciated. Respiratory: No tachypnea. Lungs clear to auscultation bilaterally. Gastrointestinal: Abdomen soft, nontender, with normoactive bowel sounds. No rebound or guarding. Neurological: Awake. Alert. Nonfocal, nonlateralizing. Skin: No rash. Normal color. No pallor. Musculoskeletal: No pedal edema. Decreased range of motion of left foot secondary to pain. Mild tenderness over tarsal bones. Mild swelling and tenderness over left lateral malleolus/talofibular ligament area. No palpable Achilles tendon deficit. Negative Galeas test. No proximal fibular head tenderness. Palpable dorsalis pedis pulse. Const Vital Signs: 09/29/21 19:03 09/29/21 19:10 09/29/21 21:03 Temperature 98 F Temperature Source Temporal Pulse Rate 71 66 Respiratory Rate 16 14 Respiratory Effort Normal Respiratory Depth Normal Respiratory Pattern Normal Blood Pressure 157/138 H 124/78 H Blood Pressure Mean 144 93 Pulse Ox 99 98 Oxygen Delivery Method Room Air Room Air Room Air MDM MDM MDM Narrative Medical decision making narrative: Patient declined ice pack. X-rays obtained of the left foot and ankle. She was administered ibuprofen 600 mg orally. X-ray of the ankle shows soft tissue swelling around the foot. X-ray of the left foot also interpreted by myself shows slightly displaced calcaneal fracture. Radiology confirmed this and states that it extends into the tarsal sinus. I then obtained a CT of the lower extremity/foot and contacted Dr. Nicholas with podiatry. There is a complex comminuted calcaneal fracture with extension to the tarsal sinus and flattening of the calcaneus. Fracture extends to the articular surface at the level of the talus. She will be placed in a posterior splint by Dr. Nicholas who has come to see the patient in the emergency department. She will be given crutches and follow-up with him on Saturday. She was given a prescription for 12 Percocet tablets for the next 3 days. At this point in time, I feel she be discharged safely home with follow-up to podiatry. Disposition is discharged home in stable condition. Radiography Diagnostic Testing: Clinical Impression(s) from Imaging Studies Ankle X-Ray 09/29/21 19:15 IMPRESSION: There is soft tissue swelling around the foot. Calcaneal fracture. Electronically Signed: Abel Irving MD at 19:44 EDT , Foot X-Ray 09/29/21 19:15 IMPRESSION: Soft tissue swelling around the foot. Slightly displaced calcaneal fracture. Fracture does extend to the tarsal sinus. Electronically Signed: Abel Irving MD at 19:45 EDT , Lower Extremity CT 09/29/21 20:21 IMPRESSION: Soft tissue swelling around the ankle. There is a complex comminuted calcaneal fracture with extension to the tarsal sinus. There is flattening of the calcaneus. Fracture extends to the articular surface at the level of the talus. Electronically Signed: Abel Irving MD at 20:59 EDT Reading Location ID and State: [facility] / [place] , Service support , Discharge Plan Triage Chief Complaint: Trauma ED Provider: Ildefonso Celestin Dx/Rx/DC Orders Clinical Impression: Fall, Calcaneus fracture, left Instructions: ED Fracture, Foot Prescriptions: New oxycodone-acetaminophen [Percocet] 5-325 mg tablet 1 tab PO Q6H PRN (Reason: pain) 3 Days Qty: 12 0RF No Action citracal Slow Release w/ D3 PO DAILY prednisone 20 mg tablet 40 mg PO DAILY Qty: 10 0RF albuterol sulfate 90 mcg/actuation HFA aerosol inhaler 2 puff inhalation Q6H PRN (Reason: shortness of breath or wheezing) Qty: 8.5 2RF metoprolol succinate 25 mg tablet extended release 24 hr 25 mg PO DAILY Qty: 90 3RF Rx Instructions: take one daily, may take an additional one if needed for tachycardia budesonide-formoterol [Symbicort] 160-4.5 mcg/actuation HFA aerosol inhaler 2 puff inhalation Q12H Qty: 10.2 3RF Primary Care Provider: Ginny Ferrell Referrals: Victor M Nicholas DPM [STAFF PHYSICIAN] - 10/02/21 Ginny Ferrell MD [Primary Care Provider] - Disposition Disposition: Home, Self Care
[2021-09-29] MEDS: Ibuprofen 600 MG Tablet PO (19:25)
--- NOTE | 2021-09-29 20:21 | CT_ITS ---
EXAM: CT LEFT LOWER EXTREMITY WITHOUT INTRAVENOUS CONTRAST CLINICAL INDICATION: fracture Technologist Notes Other, FELL OFF steo stool while painting,calcaneous fx seen on xray TECHNIQUE: Helically acquired images were obtained of the left lower extremity without intravenous contrast. 2-D reformats were performed by the technologist. This CT exam was performed using one or more of the following dose reduction techniques: automated exposure control, adjustment of the mA and/or kV according to patient size, and/or use of iterative reconstruction technique. This report was created using [employer] report [employer] technology. RADIATION DOSE: CTDIvol = 15.35 mGy, DLP = 361.44 mGy-cm COMPARISON: None. FINDINGS: BONES/JOINTS: There is an enthesophyte involving the posterior superior calcaneus at the site of insertion of the Achilles tendon. SOFT TISSUES: Soft tissue swelling around the ankle. There is a complex comminuted calcaneal fracture with extension to the tarsal sinus. There is flattening of the calcaneus. Fracture extends to the articular surface at the level of the talus. CT/Extremity Lower without Contra IMPRESSION: Soft tissue swelling around the ankle. There is a complex comminuted calcaneal fracture with extension to the tarsal sinus. There is flattening of the calcaneus. Fracture extends to the articular surface at the level of the talus. Electronically Signed: Abel Irving MD at 20:59 EDT ,
[2021-09-29 21:03] VITALS: BP 124/78; PULSE 66; RESP 14; O2SAT 98
--- NOTE | 2021-09-29 22:18 | CON.PCM_ITS ---
Assessment & Plan Assessment/Plan (1) Displaced fracture of left calcaneus: PLAN: Plan Patient examined evaluated all findings gema with patient in detail. Radiographs and CT scan were reviewed with the patient and sister in great detail. Patient at this time demonstrates no signs of compartment syndrome. Patient and her sister were educated of the signs and symptoms of compartment syndrome and were instructed to keep an eye on these and if any were to occur she will contact our office or present to the ED immediately. At this time her swelling appears to be mild in nature and her pain appears to be well controlled while at rest. Patient was dressed with a well-padded posterior splint to help stabilize the intra-articular calcaneal [id number] maintaining nonweightbearing status assisted by crutches until follow-up in our office. Detailed treatment was discussed with the patient and her sister including open reduction and internal fixation of the left calcaneal fracture versus cast nonweightbearing. The risks and benefits were discussed in great detail is my recommendation at this time that the patient proceeds with open reduction internal fixation as this will likely improve functional outcome. Patient was educated that with a calcaneal fracture such as that she will likely develop subtalar joint osteoarthritis. Patient will be prescribed 3 days of narcotic pain medication per emergency room doctor. Patient will follow-up in my office on Saturday at which time we will discuss and create a surgical plan in order to restore the patient's functional ability in a timely manner. Patient was instructed to take 81 mg baby aspirin daily for DVT prophylaxis. She will follow-up in my clinic as an outpatient on Saturday, but if she notes any signs or symptoms of compartment syndrome including but not limited to worsening of her pain, increased swelling, pallor, loss of sensation, intractable pain with movement of the lesser digits she will contact her office or present immediately to the ED. HPI Consult Data Date of Consult: 09/29/21 HPI Narrative Reason for Consultation: Left calcaneal fracture HPI Narrative: DEEJAY VAZQUEZ, is a 66 F who presents to the ED after she fell off a ladder several hours prior to arrival in the ED today. She notes that she fell approximately 3 feet landed on her left heel. She noted immediate pain swelling and inability to bear weight at that time. Patient notes that the pain is tolerable at rest, but severe with any form of weightbearing or pressure on the site. She denies any numbness or paresthesias at this time. She denies any intractable pain. She denies any color change to her foot. She denies any lumbar spine pain at this time. No other complaints. Patient has a history of daily smoking. [facility] Medical History Anemia Arthritis Back pain Bronchitis Chronic cough Hypokalemia Left shoulder pain Nicotine dependence Osteopenia Paroxysmal supraventricular tachycardia Thyroid disorder Vitamin D deficiency Vitamin D deficiency Home Medications citracal Slow Release w/ D3 PO DAILY 12/15/19 [History Last Taken Unknown] metoprolol succinate 25 mg tablet,extended release 24 hr 25 mg PO DAILY #90 tabs 09/08/20 [Rx Last Taken Unknown] albuterol sulfate 90 mcg/actuation aerosol inhaler 2 puff inhalation Q6H PRN shortness of breath or wheezing #8.5 grams 08/30/21 [Rx Last Taken Unknown] prednisone 20 mg tablet 40 mg PO DAILY #10 tabs 08/30/21 [Rx Last Taken Unknown] budesonide-formoterol HFA 160 mcg-4.5 mcg/actuation aerosol inhaler (Symbicort) 2 puff inhalation Q12H #10.2 grams 09/08/21 [Rx Last Taken Unknown] oxycodone-acetaminophen 5 mg-325 mg tablet (Percocet) 1 tab PO Q6H PRN pain 3 days #12 tabs 09/29/21 [Rx Last Taken Unknown] Allergy/AdvReac Type Severity Reaction Status Date / Time No Known Allergies Allergy Verified 09/29/21 19:05 Family History Sister CVA (cerebral vascular accident) Arthritis Surgical History H/O lumpectomy H/O unilateral oophorectomy (2001) History of bilateral breast reduction surgery History of endometrial ablation History of tubal ligation Social History Smoking Status: Unknown if ever smoked Tobacco: How many years used: 40 alcohol intake: current alcohol intake frequency: holidays/special occasions only substance use type: does not use what type of physical activity do you participate in: walking and other details: yard work frequency: daily ROS Constitutional Constitutional: Denies daytime sleepiness, difficulty sleeping or night sweats Eyes Eyes: Denies bloody eye, diplopia or exophthalmos ENT HEENT: Denies otalgia, post nasal drip or vertigo Cardiovascular Cardiovascular: Reports arrhythmia on telemetry; Denies chest pain with activity or claudication Respiratory/Chest Respiratory/Chest: Denies change in phlegm color, chest congestion or dyspnea on exertion Gastrointestinal Gastrointestinal: Denies change in bowel habits, dry heaves or dyspepsia Genitourinary Genitourinary: Denies dribbling, dysuria, erectile dysfunction or external genitalia discoloration Musculoskeletal Musculoskeletal: Reports deformity, difficulty walking and extremity pain Physical Exam Narrative Patient is alert oriented to person place and time. Vascular: Dorsalis pedis posterior tibial pulses palpable 2 out of 4 to bilateral lower extremities. There is +1 pitting edema noted to the medial and lateral calcaneus on the left lower extremity. Capillary fill time is brisk to lesser digits to bilateral feet. Digital hair growth noted bilaterally. Neurologic: Light touch protective sensation as well as two-point discrimination noted to be intact at this time. Dermatologic: No evidence of ecchymosis at this current moment there is significant swelling to the SANTIAGO calcaneal region. That is located in the left lower extremity. No open lesions or fracture blisters at this time. Musculoskeletal: There is pain limited to the left calcaneus pain. No pain with passive range of motion of the lesser digits to the left foot. Minimal deformity noted to the left foot. Ankle and subtalar joint range of motion deferred due to pain. No other focal left foot pain noted. Radiographs: Mildly displaced intra-articular calcaneal fracture with loss of calcaneal height noted on the lateral radiograph to the left foot. CT scan: Joint depression calcaneal fracture with large sustentacular fragment and intra-articular fracture involving the posterior facet along with distal comminution to the lateral wall of the calcaneus and anterior body. There is noted to be shortening and varus alignment of the calcaneus. Radiology Impression Ankle X-Ray 09/29/21 19:15 IMPRESSION: There is soft tissue swelling around the foot. Calcaneal fracture. Electronically Signed: Abel Irving MD at 19:44 EDT , Foot X-Ray 09/29/21 19:15 IMPRESSION: Soft tissue swelling around the foot. Slightly displaced calcaneal fracture. Fracture does extend to the tarsal sinus. Electronically Signed: Abel Irving MD at 19:45 EDT , Lower Extremity CT 09/29/21 20:21 IMPRESSION: Soft tissue swelling around the ankle. There is a complex comminuted calcaneal fracture with extension to the tarsal sinus. There is flattening of the calcaneus. Fracture extends to the articular surface at the level of the talus. Electronically Signed: Abel Irving MD at 20:59 EDT ,
[2021-09-29 22:58] VITALS: BP 142/66; PULSE 72; RESP 16; TEMP 37.2; O2SAT 100
== END 2021-09-29 23:00 | disposition home or self-care (01) ==
PROVIDERS: Emergency Provider Emergency Medicine; PCP Internal Medicine; Visit Provider Emergency Medicine
DX: S92.002A Unspecified fracture of left calcaneus, initial encounter for closed fracture (principal); W11.XXXA Fall on and from ladder, initial encounter; M79.672 Pain in left foot
CPT/HCPCS: 73610; 73630; 73700; 99284

== ENCOUNTER → 2021-10-04 | Outpatient (CLI) | payer MEDICARE, SELFPAY ==
[2021-10-04 17:51] LABS: Absolute Lymphocyte Count 2.14 X10^3/uL (0.83-4.51); Absolute Neutrophil Count 3.9 X10^3/uL (2.0-7.7); Basophil# 0.02 X10^3/uL; Basophil% 0.3 % (0-1); Eosinophil# 0.07 X10^3/uL; Hematocrit 42.6 % (37-47); Hemoglobin 13.5 g/dL (12.0-15.0); Lymphocyte # 2.14 X10^3/ul (0.83-4.51); Lymphocyte % 31.5 % (19-41); Mean Corp Hgb Conc 31.7 g/dL (32-36); Mean Corpuscular Hgb 30.9 pg (27.0-32.0); Mean Corpuscular Volume 97.5 fL (81-99); Mean Platelet Vol. 9.9 fl (6.2-12.0); Monocyte# 0.65 X10^3/uL; Monocyte% 9.6 % (0-10); NRBC Flagged by Analyzer 0 % (0-5); Neutrophil # 3.91 X10^3/uL (2.7-7.7); Neutrophil % 57.5 % (47-70); Platelet Count 205 K/mm3 (150-450); RBC Distribution Width CV 12.3 % (11.6-14.6); RBC Distribution Width SD 44.2 fl (35.1-43.9); Red Blood Count 4.37 M/mm3 (4.2-5.4); White Blood Count 6.8 K/mm3 (4.4-11.0)
[2021-10-04 18:19] LABS: ALB/GLOB Ratio 1.3 RATIO (0.9-2.4); AST(SGOT) 25 U/L (15-37); Alanine Aminotransfer ALT/SGPT 23 U/L (13-56); Albumin, Serum 3.7 g/dL (3.2-5.0); Alkaline Phosphatase 96 U/L (45-117); Anion Gap 8 (5-15); BUN 11 mg/dL (7-18); BUN/Creat Ratio 15.5 RATIO (10-20); Calcium,Total 9.3 mg/dL (8.5-10.1); Chloride 106 mmol/L (98-107); Creatinine, Serum 0.71 mg/dL (0.55-1.02); EST Glomerular Filtration Rate 88 mL/min (>60); Est Glom Filt Rate - Afr Amer 106 mL/min (>60); Globulin 2.9 g/dL (2.2-4.2); Glucose 89 mg/dL (74-106); Potassium 4.1 mmol/L (3.5-5.1); Protein, Total 6.6 g/dL (6.4-8.2); Sodium Level 140 mmol/L (136-145)
== END | disposition home or self-care (01) ==
LOC: MFPLAB 14:15
PROVIDERS: PCP Internal Medicine; Visit Provider Family Medicine
DX: Z01.818 Encounter for other preprocedural examination (principal)
CPT/HCPCS: 36415; 80053; 85025

== ENCOUNTER 2021-10-13 11:28 | Day surgery (SDC) | payer MEDICARE, SELFPAY ==
--- NOTE | 2021-10-10 16:17 | EKG12_ITS ---
Test Reason : Blood Pressure : / mmHG Vent. Rate : 063 BPM Atrial Rate : 063 BPM P-R Int : 134 ms QRS Dur : 082 ms QT Int : 398 ms P-R-T Axes : 074 079 067 degrees QTc Int : 407 ms Normal sinus rhythm Normal ECG Confirmed by COREY NAPOLES, ANGIE ([id number]), editor map MINI MACIEL ([id number]) on 10/11/2021 8:21:18 AM Referred By: Victor M Nicholas Confirmed By:ANGIE NICOLE MD
[2021-10-13] VITALS (10 sets, daily range): BP systolic 115–158; BP diastolic 70–84; PULSE 60–83; RESP 16; TEMP 36.6–36.8; O2SAT 92–100; BMI 21.4
[2021-10-13] MEDS: Lactated Ringers 1,000 ML 100 ML IV ×2 (12:00→14:21)
[2021-10-13] MEDS: Cefazolin 2 GM in 0.9% Normal Saline 100 ML IV (13:00)
--- NOTE | 2021-10-13 13:33 | RAD_ITS ---
EXAM: XR LEFT CALCANEUS, 2 OR MORE VIEWS CLINICAL INDICATION: FX TECHNIQUE: Lateral and plantar views of the left calcaneus. This report was created using [employer] report generation technology. COMPARISON: None. FINDINGS: BONES/JOINTS: Final image demonstrates 4 screws within the calcaneus. OTHER FINDINGS: A total of 27 fluoroscopically guided spot images were obtained. A total of 325 seconds of fluoroscopy time was utilized. Electronically Signed: Eric Hickey MD at 2:46 EDT , RAD/Calcaneus min 2 Views IMPRESSION: undefined
[2021-10-13] MEDS: Lidocaine 2% (20 ml mdv) 20 ML Vial (15:34)
--- NOTE | 2021-10-13 15:41 | PCM.OPRPT ---
Problems Associated Problem List Diagnoses (1) Calcaneus fracture, left: Report of Operation Date of Procedure: 10/13/21 Pre-Operative Diagnosis: left displaced calcaneal fracture` Post-Operative Diagnosis: same Surgery/Procedure Performed:: Open reduction with internal fixation left calcaneal fracture Description of Surgical Findings:: Patient brought back in the operating room placed comfortably on the operating room table after induction to general anesthesia in the lateral position. All osseous prominences offloaded prevent any compression neuropraxia's or issues with long-term pressure. Well-padded left thigh tourniquet applied. Left lower extremity scrubbed prepped and draped using typical aseptic manner. Left lower extremity was elevated exsanguinated tourniquet was inflated to 300 mmHg this was let down prior to incision closure control tourniquet time was noted to be 90 minutes. A large fully threaded Steinmann pin was placed from lateral to medial and the posterior calcaneal tubercle this was used to leverage the posterior tuberosity into a corrected position was pinned into place with a guidewire for a 6 5 fully threaded screw from posterior to anterior. Correction was confirmed with fluoroscopic imaging as well as clinically I was noted that the calcaneus was deep rotated in the frontal plane into a more valgus alignment with length restored to the calcaneus appreciated on calcaneal axial and reduction of excessive width of the calcaneus. Next guidepin for additional fully threaded screw 6.5 mm was taken from inferior postero lateral to superior medial anterior into the sustentacular fragment. Positioning was confirmed via multiple both fluoroscopic images and the screw was placed. Initially a 50 mm screw was applied upon application of the 4 oh partially-threaded screws from lateral into the sustentaculum sidra portion of the fracture there is noted to be some additional reduction of the width of the calcaneus which led to advancement of the screw so it was changed out from a 50 mm to a 45 mm screw to avoid penetration of the subtalar joint. 2 partially-threaded 4.0 millimeter screws were applied from lateral to medial percutaneously into the sustentaculum sidra later fragment. These were advanced and adequate reduction was noted on Broden views AP ankle calcaneal axial and lateral images. Incisions were then flushed copious amounts normal sterile saline and closed with 2-0 Prolene using interrupted technique. Foot was cleansed and dressed with bacitracin Adaptic 4 x 4's Kerlix and a well-padded posterior splint. Patient was transferred to PACU with vital signs stable and vascular status intact all digits for further monitoring prior to discharge patient tolerated procedure and anesthesia well in apparent satisfactory condition. Patient will follow up in 1 week and maintain a nonweightbearing status assisted by a knee scooter with baby aspirin for DVT prophylaxis. Surgeon: Victor M Nicholas [employer] driver: None (basia sethi PGYIII) Type of Anesthesia: General/Regional Special Medications: 2.0 % lidocaine applied to saphenous 5cc total, popliteal block performed by anesthesia post op Specimen's removed: none Drains: none Estimated Blood Loss (mL): minimal Admit VTE Documentation VTE Present on Admission: Yes VTE Mechan Device Prophylaxis: SCD's VTE Pharm Prophylaxis ordered?: Yes
[2021-10-13] MEDS: Bacitracin 500 UNITS/GM PACKET (15:44)
[2021-10-13] MEDS: oxyCODONE 5 MG Tablet PO (17:59)
[2021-10-13] MEDS: Acetaminophen 325 MG Tablet PO (18:00)
== END 2021-10-13 18:57 | disposition home or self-care (01) ==
LOC: SDC 11:29 → AC 11:32
PROVIDERS: PCP Internal Medicine; Referring Provider Podiatrist; Visit Provider Podiatrist
PROC: (CPT 28415; principal; 2021-10-13 12:45)
DX: S92.002A Unspecified fracture of left calcaneus, initial encounter for closed fracture (principal); I47.1 Supraventricular tachycardia; F17.210 Nicotine dependence, cigarettes, uncomplicated; R05.3 Chronic cough
CPT/HCPCS: 28415; 01480; 64445; 73650; 76000; 93005; C1713; J7120; J2405

== ENCOUNTER 2021-11-12 13:36 | Emergency (ER) | payer MEDICARE, SELFPAY ==
[2021-11-12 13:37] VITALS: BP 122/72; PULSE 68; RESP 16; TEMP 36.8; O2SAT 99; BMI 21.4
--- NOTE | 2021-11-12 13:49 | EX.ED.DYSGE1 ---
HPI History of Present Illness Chief Complaint: Lower Extremity Injury Narrative Narrative: Patient presents with left knee pain. It is anterior. She has been using her knee quite a bit especially to put weight on it as she uses a scooter, she needs the knee scooter since she had recent calcaneal fracture with subsequent surgery. She has no calf pain no lower extremity edema she has no posterior knee pain no chest pain or shortness of breath. PFSH PFS Medical History (Updated 11/12/21 @ 13:[address] Dewayne Santillan MD) Anemia Arthritis Back pain Bronchitis Cardiology follow-up encounter Chronic cough History of echocardiogram History of edema History of steroid therapy History of stress test Hypokalemia Left shoulder pain Nicotine dependence Osteopenia Paroxysmal supraventricular tachycardia Post-menopausal Smoker Thyroid disorder Vitamin D deficiency Vitamin D deficiency Walker as ambulation aid Wears glasses Home Medications aspirin 81 mg capsule 81 mg PO DAILY 10/10/21 [History Last Taken 10/11/21] oxycodone-acetaminophen 5 mg-325 mg tablet (Percocet) 1 tab PO Q6H PRN pain 7 days #28 tabs 10/13/21 [Rx Last Taken Unknown] metoprolol succinate 25 mg tablet,extended release 24 hr See Rx Instructions .Route .COMPLEX #135 tabs 11/07/21 [Rx Last Taken Unknown] Allergy/AdvReac Type Severity Reaction Status Date / Time No Known Allergies Allergy Verified 11/12/21 13:36 Family History Sister CVA (cerebral vascular accident) Arthritis Surgical History (Updated 10/10/21 @ 11:23 by Tarah Marlow) H/O lumpectomy H/O unilateral oophorectomy (2001) History of bilateral breast reduction surgery History of endometrial ablation History of tubal ligation Social History Smoking Status: Current every day smoker tobacco type: cigarettes Tobacco: How many years used: 40 alcohol intake: current alcohol intake frequency: holidays/special occasions only substance use type: does not use what type of physical activity do you participate in: walking and other details: yard work frequency: daily ROS ROS ED ROS Narrative Past medical history: Reviewed Medications: Reviewed Social history: Noncontributory Review of systems: General: No fever or chills Respiratory: No shortness of breath Cardiovascular: No chest pain Musculoskeletal: As in HPI Skin: No abrasions or lacerations Neurological: No weakness or paresthesias Hematologic: No easy bleeding or easy bruising EXAM Physical Exam Narrative Exam Narrative: Physical exam General: Patient does not appear in significant distress . Head: Normocephalic, Atraumatic Neck: No C-spine tenderness Cardiovascular: Normal distal pulses Back: Nontender, Normal Inspection. Extremities: She has some tenderness over the anterior knee, she has a mild effusion prepatellar space is normal there is no erythema or calor. She has no posterior pain she has no calf pain she has a negative Homans. She has no inner thigh pain. The knee exam shows a slight effusion but no erythema or calor. There is no laxity on anterior posterior medial or lateral stressors. Normal extensor mechanism. Skin: No abrasions, no lacerations Neurological: Normal strength and sensation Const Vital Signs: 11/12/21 13:37 Temperature 98.2 F Temperature Source Temporal Pulse Rate 68 Respiratory Rate 16 Blood Pressure 122/72 H Blood Pressure Mean 88 Pulse Ox 99 Oxygen Delivery Method Room Air MDM MDM MDM Narrative Medical decision making narrative: Patient has arthritis and likely developed overuse slight effusion in her knee. She is on meloxicam which she just started yesterday otherwise I reassured her I believe she is safe for discharge I will refer to orthopedics. She does not need a DVT study. She does not need an x-ray. Discharge Plan Triage Chief Complaint: Lower Extremity Injury ED Provider: Dewayne Santillan Dx/Rx/DC Orders Clinical Impression: Acute knee pain, Effusion of knee Instructions: ED Arthralgia Prescriptions: No Action aspirin 81 mg Capsule 81 mg PO DAILY oxycodone-acetaminophen [Percocet] 5-325 mg tablet 1 tab PO Q6H PRN (Reason: pain) 7 Days Qty: 28 0RF metoprolol succinate 25 mg tablet extended release 24 hr See Rx Instructions .ROUTE .COMPLEX Qty: 135 3RF Dose Instruction: take 1 tablet by mouth once daily (MAY TAKE AN ADDITIONAL 1 TABLET IF NEEDED FOR TACHYCARDIA) Rx Instructions: take 1 tablet by mouth once daily (MAY TAKE AN ADDITIONAL 1 TABLET IF NEEDED FOR TACHYCARDIA) Primary Care Provider: Ginny Ferrell Referrals: Ginny Ferrell MD [Primary Care Provider] - Josh Sifuentes MD [Med Staff - Active Staff] - 3-5 Days Disposition Disposition: Home, Self Care
== END 2021-11-12 14:13 | disposition home or self-care (01) ==
LOC: ED 14:06
PROVIDERS: Emergency Provider Emergency Medicine; PCP Internal Medicine; Visit Provider Emergency Medicine
DX: M25.562 Pain in left knee (principal); F17.210 Nicotine dependence, cigarettes, uncomplicated; M25.469 Effusion, unspecified knee
CPT/HCPCS: 99282

== ENCOUNTER → 2022-01-16 | Outpatient (CLI) | payer MEDICARE, SELFPAY ==
--- NOTE | 2022-01-16 13:24 | CT_ITS ---
STUDY: CT LEFT FOOT REASON FOR EXAM: Female, 66 years old. DISPLACED FX OF L CALCANEUS RADIATION DOSAGE (If Supplied By Facility): CTDIvol = ( 15.35 ) mGy, DLP = ( 447.09 ) mGycm TECHNIQUE: Thin section transaxial imaging of the foot was obtained, with sagittal and coronal reconstructed images. 3-D images were reconstructed. Individualized dose optimization techniques were used for this CT. COMPARISON: Comparison is made with prior examination dated 09/29/2021. FINDINGS: The patient is status post open reduction and fixation of the comminuted fracture of the calcaneus. The fracture is healed. Normal visualized tibiotalar, subtalar, talonavicular, calcaneocuboid, tarsal and tarsometatarsal articulations. Diffuse osteoporosis is seen throughout the calcaneus as well as the talus and the tarsal bones. Normal metatarsophalangeal joint of the great toe. Normal tibial and fibular sesamoid bones. Normal interphalangeal joint of the great toe. Normal phalanges of the great toe. Normal second through fifth metatarsophalangeal joints. Normal interphalangeal joints and phalanges of the lesser toes. Persistent soft tissue swelling. CT/Extremity Lower without Contra IMPRESSION: Status post open reduction and fixation of the comminuted calcaneal fracture. There is healing. Diffuse osteoporosis. Soft tissue swelling. Electronically Signed: Fernando Cruz MD at 11:05 EDT ,
== END | disposition home or self-care (01) ==
LOC: CT 13:20
PROVIDERS: PCP Internal Medicine; Referring Provider Podiatrist; Visit Provider Podiatrist
DX: S92.012A Displaced fracture of body of left calcaneus, initial encounter for closed fracture (principal)
CPT/HCPCS: 73700

== ENCOUNTER → 2022-01-29 | Outpatient (CLI) | payer MEDICARE, SELFPAY ==
--- NOTE | 2022-01-29 13:56 | ECHOD_ITS ---
Reason For Study: Arrhythmia Procedure This was a 2D Doppler, Color Flow transthoracic echocardiogram. Exam performed in department. Left Ventricle Normal LV size. Left ventricular systolic function is normal. The estimated ejection fraction is 55 %. No regional wall motion abnormalities noted. Right Ventricle Normal RV size. Normal systolic function. Atria Normal left atrium. Normal right atrium. Mitral Valve Normal mitral valve. Tricuspid Valve Normal tricuspid valve. Mild tricuspid valve insufficiency. Pulmonary artery systolic pressure is 26 mmHg. Aortic Valve Normal aortic valve. Trisinus/trileaflet aortic valve. Pulmonic Valve Normal pulmonic valve. Great Vessels Normal aortic root. The pulmonary artery is normal size. Normal inferior vena cava. Pericardium/Pleural No pericardial effusion. MMode/2D Measurements & Calculations LVIDd: 4.4 cm IVSd: 0.84 cm Ao root diam: 2.8 cm LVIDs: 3.0 cm LVPWd: 0.84 cm RVDd: 2.4 cm FS: 31.9 % LAV(MOD-bp): 25.0 ml LVAd ap4: 19.1 cm2 SV(MOD-sp4): 30.0 ml LAV(MOD-bp) Indexed: 14.8 ml/m2 LVLd ap4: 6.8 cm LAV(MOD-sp2): 31.3 ml EDV(MOD-sp4): 45.2 ml LAV(MOD-sp4): 18.5 ml EDV(sp4-el): 45.3 ml LVAs ap4: 10.1 cm2 LVLs ap4: 5.9 cm ESV(MOD-sp4): 15.2 ml ESV(sp4-el): 14.7 ml EF(MOD-sp4): 66.3 % EF(sp4-el): 67.5 % SV(sp4-el): 30.6 ml LA A4 area: 9.7 cm2 LA dimension(2D): 2.2 cm RA A4 area: 10.2 cm2 Doppler Measurements & Calculations MV E max lisandro: 62.0 cm/sec Lat Peak E' Lisandro: 14.3 cm/sec Med Peak E' Lisandro: 9.4 cm/sec MV A max lisandro: 58.9 cm/sec E/E' lat: 4.3 E/E' med: 6.6 MV E/A: 1.1 Ao V2 max: 110.7 cm/sec LV V1 max: 87.2 cm/sec PA V2 max: 75.0 cm/sec Ao max P.9 mmHg LV V1 max P.0 mmHg Ao V2 mean: 79.8 cm/sec Ao mean P.8 mmHg Ao V2 VTI: 26.2 cm TR max lisandro: 239.6 cm/sec TR max P.0 mmHg ECHO/Echo Complete Interpretation Summary Normal LV size. Left ventricular systolic function is normal. The estimated ejection fraction is 55 %. Pulmonary artery systolic pressure is 26 mmHg. Ordering Physician: Gilmar Biggs Referring Physician: Ginny Ferrell Performed By: Tamra Cyr, RDCS, RVT
== END | disposition home or self-care (01) ==
LOC: CVS 13:55
PROVIDERS: PCP Internal Medicine; Referring Provider Internal Medicine Cardiovascular Disease; Visit Provider Internal Medicine Cardiovascular Disease
DX: I47.1 Supraventricular tachycardia (principal)
CPT/HCPCS: 93306

== ENCOUNTER → 2022-03-09 | Outpatient (CLI) | payer MEDICARE, SELFPAY ==
--- NOTE | 2022-03-09 13:10 | MRI_ITS ---
EXAM: MR LEFT LOWER EXTREMITY WITHOUT INTRAVENOUS CONTRAST, KNEE CLINICAL INDICATION: CONTUSION L KNEE TECHNIQUE: Multiplanar and multisequence MR images of the left knee without intravenous contrast. This report was created using [email or web address] report [employer] technology. COMPARISON: None. FINDINGS: BONES/JOINTS: Full-thickness fissuring at the median ridge of the patella with focal subchondral signal alteration. Small amount of suprapatellar joint fluid. Nonspecific heterogeneous marrow involving the distal femur and patella without fracture line. No synovial hypertrophy. No intra-articular body. EXTENSOR MECHANISM: Unremarkable. MEDIAL MENISCUS: Unremarkable. LATERAL MENISCUS: Unremarkable. MEDIAL CAPSULE/SUPPORTING STRUCTURES: Unremarkable. Intact. LATERAL CAPSULE/SUPPORTING STRUCTURES: Unremarkable. Lateral collateral ligamentous complex, inclusive of the popliteal tendon, are intact. ANTERIOR CRUCIATE LIGAMENT: Unremarkable. Intact. POSTERIOR CRUCIATE LIGAMENT: Unremarkable. Intact. MUSCLES: Unremarkable. CARTILAGE: Unremarkable. Intact. FLUID: Small Shanks''s cyst. No joint effusion. OTHER SOFT TISSUES: See above. MRI/Lower Ext Joint Only (Routine) IMPRESSION: 1. Full-thickness fissuring at the median ridge of the patella with focal subchondral signal alteration. 2. Incidental findings as above. 3. No other significant internal derangement. Electronically Signed: Jayant Vu MD at 2:07 EST ,
== END | disposition home or self-care (01) ==
PROVIDERS: PCP Internal Medicine; Referring Provider Orthopaedic Surgery; Visit Provider Orthopaedic Surgery
DX: S80.02XA Contusion of left knee, initial encounter (principal)
CPT/HCPCS: 73721

== ENCOUNTER 2022-05-08 14:30 | Outpatient (RCR) | payer MEDICARE, SELFPAY ==
--- NOTE | 2021-12-27 17:25 | HP.PTEVAL ---
Patient's Visit Information DEEJAY VAZQUEZ is a 66 year old F referred to Physical Therapy by Dr. Victor M Nicholas DPM with a diagnosis of DISLPACED FX OF BODY OF LEFT CALCANEEOUS ,CLOSED FRACTURE. Date of Evaluation: 12/27/21 Physical Therapist: Lalo Farley, PT, Cert MDT, OCS - Visit Plan Frequency: 2-3x /Week Duration: 6-8weeks Plan: S/P ORIF CALCANEOUS October ,( PATIENT HAS BEEN USING KNEELING WALKRER). AMBULATION WITH WBAT WITH WALKER/CRUTCHES WITH CAM BOOT AND 2-4WEEKS TRANSITIONS WBAT WITHOUT CRUTCHES /WALKER. PT INTERVETION AROM AKNLE ,FLEXABLITY CALF ,STRENGTHNEING EX'S ANKLE ,QUADS/HAMS/HIP ,GAIT/ BALANCE TRAINING WITH PROGRESSION OF WB , - Subjective This 66 y/o female presents to physical therapy left displaced left calcaneal closed fracture. Patient underwent s/p ORIF plate and screws October 13 due to falling from ~10 ft ladder onto heel left . Patient to ER via sister which occurred September 29 did x-rays showed 3 frcatures of calcaneus d/c to home with cast but unable to have surgery ~ 2weeks . Patient has bee NWB with CAM boot using kneeling scooter. Recently ,seen DR DecDec ,x-rays looked good. RTD on Dec. Instructions with WBAT with crutches and CAM boot and 2-4 weeks WBAT with crutches . Patient has edema and has no paresthesia/tingling . Patient has difficulty I dressing and tub/shower with bench. Friends assist with cleaning and laundry. Patient has 1 story ranch with 4steps with rail and crutch ,trying to home and /or scoot on butt. Patient condition affects QOL and function . Patient goals to walk normal . SOCIAL: single. VOCATION: retired - Pain Left Ankle Pain Intensity (Out of 10): 1 Pain Intensity Range: 10 - Objective POSTURE: pes planus. GAIT: ambulated with fww with CAM boot WBAT 8O FT with SBA. DYNAMIC BALANCE: fair with fww. EDEMA: trimallaelor 69 cm. NEURO: intact ,denies paresthesia /tingling. AROM: dorsiflexion 10 degrees from 0 ,plantarflexion 60 degrees ,inversion 15 degrees ,eversion 0 degrees. MMT: ( peak force) anteriortibialis 9.9 , posteriortibialis 5.5,peroneus 4.7, G-S 9.8,quads 14.9 ,hamstrings 15.7, hip flexion 20.2. FLEXABLITY: mod tight calf - Balance/Special Test Scores Lower Extremity Functional Score: 14 - Goals Goal 1:: I with HEP for ankle Goal Time Frame: 8-12 Weeks Goal 2:: Patient to normalize gait pattern with good balance Goal Time Frame: 8-12 Weeks Goal 3:: Patient to increase AROM ankle by 5-10 degrees all planes to motion to improve gait especially DF Goal Time Frame: 8-12 Weeks Goal 4:: Patient to increase peak force ankle stabilizers ,quads/hams/hip by 10 to improve gait Goal Time Frame: 8-12 Weeks Goal 5:: Patient to demonstrate 75 % improvement with improved function and gait for ADL's Goal Time Frame: 8-12 Weeks Goal 6:: Patient to improve LFES score by 10 points to improve QOL and function. Goal Time Frame: 8-12 Weeks - Rehabilitation Potential Physical Therapy Diagnosis: This patient sustained calcaneal fracture with s/p ORIF with current impairment with decrease ROM ,strength ankle knee/hip ,gait ,balance, stairs and proprioception thus benefit from skilled PT Rehabilitation Potential: Good - Anticipated Interventions Patient/Client Instruction: Educate patient on: Condition, Plan of Care For the Purpose of:: To decrease pain, To increase ROM, To improve muscle performance and motor function, To improve ability to perform ADL's, To increase tolerance to activity/condition/position, To improve ability of physical actions for home/community/work/leisure, To improve gait and locomotor functions, To improve health of tissue, To decrease soft tissue restriction, To increase flexibility/ROM, To improve endurance, To improve balance, To improve safety with gait, To prevent re-injury, To improve tolerance to ADL's Therapeutic Exercise to Include: Strength training, Endurance training, Balance training, Flexibilty training, Gait and locomotor training, Active ROM Comment: ANKLE/HIP/KNEE For the Purpose of:: To decrease pain, To increase ROM, To improve muscle performance and motor function, To increase tolerance to activity/condition/position, To improve performance and independence with ADL's, To improve health of tissue, To decrease soft tissue restriction, To increase flexibility/ROM, To improve endurance, To improve balance, To improve safety with gait TENS: Yes IF ES: Yes Cryotherapy (ice pack, ice massage): Yes Thermo therapy (hot pack): Yes Vasopneumatic device: Yes For the Purpose of:: To decrease pain, To increase ROM, To improve nutrient delivery to tissue, To increase oxygenation perfusion, To improve health of tissue, To increase flexibility/ROM Thank you for the opportunity to evaluate your patient. For Medicare and Medicare HMO plans, please review the plan of care and approve it. It will need to be FAXED BACK to us at [phone] for Medicare purposes. For Medicare only, by signing this I certify the plan of care. Please let me know if there are questions or concerns regarding this plan of care. Physician Signature: Date:
--- NOTE | 2022-03-26 15:50 | HP.PTEVAL2_ITS ---
Patient's Visit Information DEEJAY VAZQUEZ is a 66 year old F referred to Physical Therapy by Dr. Victor M Nihcolas DPM with a diagnosis of CONTUSION OF LEFT KNEE ,PAIN IN LEFT KNEE,UNILATERAL OA LEFT KNEE. Date of Evaluation: 03/26/22 Physical Therapist: Lalo Farley, PT, Cert MDT, OCS - Visit Plan Frequency: 2x /Week Duration: 4 Weeks Plan: PT INTERVETIONS ROM KNEE ,STRENGTHENING/QUADS/HAMS/HIP ,FUNCTIONAL STRENGTHNEING AND MODALTIES - Subjective Subjective: This 66 y/o female presents to physical therapy with left knee pain. Patient October 13 underwent ORIF calcaneus due to falling off ladder September. Patient has been getting therapy for ankle left . Subsequently has had knee pain seen DR Gordon did x-rays DJD and had MRI showed grade 3 fissure fracture patella ,condyle and DJD . Recommended PT .No injection. Pain located lateral patella. Not recommending surgery Aggravating factors walking and standing with stiffness and pain . No edema in knee. Denies paresthesia/tingling. Alleviating factors over counter medication. Patient sleeping good. No increase pain with stairs but has some pain with kneeling/squatting. Patient goals to have no pain. SOCAIL: SINGLE. VOCATION: retired - Pain Left Knee Intensity: 2 Pain Intensity Range: 10 - Objective Objective: POSTURE: mild forward posture slight knee valgus. GAIT: reciprocal pattern decrease stance time with knee valgus and stance time. NEURO: intact. Edema: joint line 36.2cm. AROM: 0-137 degrees. MMT:(peak force) quads 38.6 ,mo mstrings 29.6 ,hip flexion 22.8,hip abd 18.9. STAIRS: one step at time with rail - Special Tests Shahab - Meniscus: Negative Valgus - MCL: Negative Varus - LCL: Negative Patellar Apprehension - PFS: Negative Patellar Grind - PFS: Negative - Goals Goal 1:: Patient to be I with HEP for knee Goal Time Frame: 4-6 Weeks Goal 2:: Patient to normalize gait 85% of the time with improve stance time Goal Time Frame: 4-6 Weeks Goal 3:: Patient improve peak force quads/hamstrings by 10 peak force to improve gait Goal Time Frame: 4-6 Weeks Goal 4:: Patient demonstrate 50 % improvement with decrease pain and improved function Goal Time Frame: 4-6 Weeks Goal 5:: Patient to improve LFES score by 5 points or > to improve function Goal Time Frame: 4-6 Weeks - Rehabilitation Potential Physical Therapy Diagnosis: This patient developed knee pain after ORIF heel thus had MRI with current impairments with weakness ,ROM impairs gait and function thus benefit from skilled PT Rehabilitation Potential: Good - Anticipated Interventions Patient/Client Instruction: Educate patient on: Condition, Plan of Care For the Purpose of:: To decrease pain, To increase ROM, To improve muscle performance and motor function, To improve ability to perform ADL's, To increase tolerance to activity/condition/position, To improve ability of physical actions for home/community/work/leisure, To improve gait and locomotor functions, To improve health of tissue, To decrease soft tissue restriction, To increase flexibility/ROM, To prevent re-injury Therapeutic Exercise to Include: Strength training, Endurance training, Balance training, Flexibilty training, Gait and locomotor training, Active ROM For the Purpose of:: To decrease pain, To increase ROM, To improve muscle performance and motor function, To improve ability to perform ADL's, To improve ability of physical actions for home/community/work/leisure, To improve health of tissue, To decrease soft tissue restriction, To increase flexibility/ROM, To improve tolerance to ADL's TENS: Yes IF ES: Yes Cryotherapy (ice pack, ice massage): Yes Thermo therapy (hot pack): Yes Ultrasound (thermal/non thermal): Yes For the Purpose of:: To decrease pain, To decrease swelling/inflammation, To increase ROM, To improve nutrient delivery to tissue, To increase oxygenation perfusion, To improve health of tissue, To decrease soft tissue restriction Thank you for the opportunity to evaluate your patient. For Medicare and Medicare HMO plans, please review the plan of care and approve it. It will need to be FAXED BACK to us at [phone] for Medicare purposes. For Medicare only, by signing this I certify the plan of care. Please let me know if there are questions or concerns regarding this plan of care. Physician Signature: Date:
--- NOTE | 2022-05-08 15:18 | HP.PTDCS(2) ---
It has been my pleasure to treat DEEJAY VAZQUEZ referred by Dr. Victor M Nicholas DPM, with the diagnosis of CONTUSION OF LEFT KNEE ,PAIN IN LEFT KNEE,UNILATERAL OA LEFT KNEE for a total of 8 visit(s). Discharge Date: 05/08/22 Please see the following information for a summary of their discharge status. Subjective: Doing great ready for d/c % Improvement: 75 Objective/Function/Assessment: GAIT: reciprocal pattern mild decrease stance. AROM: 0-135 degrees supine knee flexion. MMT: peak force - quads 32.6.hams 33.6 Patient Goals: Improve Mobility, Improve Function, Decrease Pain, Alleviate Pain, Walk Normal, Maneuver Steps, Improve ROM Goal 1:: Patient to be I with HEP for knee Goal 2:: Patient to normalize gait 85% of the time with improve stance time Goal 3:: Patient improve peak force quads/hamstrings by 10 peak force to improve gait Goal 4:: Patient demonstrate 50 % improvement with decrease pain and improved function Goal 5:: Patient to improve LFES score by 5 points or > to improve function Plan: D/C Discharge Comments: HEP If there are questions or concerns regarding this patient's physical therapy, please feel free to call me at [phone]. Thank you for the referral of this patient. Sincerely, Lalo Farley, PT, Cert MDT, OCS
--- NOTE | 2022-05-08 15:37 | HP.PTDCSUM ---
It has been my pleasure to treat DEEJAY VAZQUEZ referred by Dr. Victor M Nicholas DPM, with the diagnosis of DISLPACED FX OF BODY OF LEFT CALCANEEOUS ,CLOSED FRACTURE for a total of 23 visit(s). Discharge Date: 05/08/22 Please see the following information for a summary of their discharge status. Subjective: Doing well Left Ankle Pain Intensity (Out of 10): 0 Left Knee Pain Intensity (Out of 10): 0 % Improvement: 75 Objective/Function: GAIT: reciprocal pattern with mild decrease stance time. MMT: ankle peak force dorsiflexion 32 .8 , plantarflexion 31.6 ,. eversion 23.7 ,inversion 24.7. AROM: dorsiflexion 5 degrees , plantarflexion 60 degrees , eversion 5 degrees ,inversion 35 degrees. EFFUSION: mild pitted edema around ankle Goal 1:: I with HEP for ankle Goal Progress: Goal Met Goal 2:: Patient to normalize gait pattern with good balance Goal 3:: Patient to increase AROM ankle by 5-10 degrees all planes to motion to improve gait especially DF Goal Progress: Goal Met Goal 4:: Patient to increase peak force ankle stabilizers ,quads/hams/hip by 10 to improve gait Goal Progress: Goal Met Goal 5:: Patient to demonstrate 75 % improvement with improved function and gait for ADL's Goal Progress: Goal Met Goal 6:: Patient to improve LFES score by 10 points to improve QOL and function. Goal Progress: Goal Met Plan: D/C and hep Discharge Comments: HEP If there are questions or concerns regarding this patient's physical therapy, please feel free to call me at [phone]. Thank you for the referral of this patient. Sincerely, Lalo Farley, PT, Cert MDT, OCS Balance/Gait/Functional tests - Balance/Special Test Scores Lower Extremity Functional Score: 56
== END 2022-05-08 19:00 | disposition home or self-care (01) ==
LOC: PT 14:30
PROVIDERS: PCP Internal Medicine; Referring Provider Podiatrist; Visit Provider Podiatrist
DX: S92.012D Displaced fracture of body of left calcaneus, subsequent encounter for fracture with routine healing (principal); X58.XXXD Exposure to other specified factors, subsequent encounter
CPT/HCPCS: 97016; 97110; 97162

== ENCOUNTER 2022-06-21 09:00 | Day surgery (SDC) | payer MEDICARE, SELFPAY ==
--- NOTE | 2022-06-12 15:20 | RAD_ITS ---
STUDY: X-RAY CHEST REASON FOR EXAM: Female, 66 years old. Preop for ablation TECHNIQUE: PA and lateral views of the chest. COMPARISON: 08/30/2021 FINDINGS: Lungs are mildly expanded without a superimposed process or significant interval change. Normal size heart. Normal mediastinum and eliana. Normal visualized pulmonary arteries. Normal visualized aortic arch and descending thoracic aorta. Normal visualized thoracic spine. Normal visualized ribs, clavicles, and shoulders. There is no demonstrated abnormality of the visualized soft tissue structures of the upper abdomen. RAD/Chest PA and Lateral IMPRESSION: Hyperexpanded lungs without a superimposed acute pulmonary process Electronically Signed: Say Lai MD at 11:32 EST ,
[2022-06-12 16:18] LABS: Hematocrit 48.9 % (37-47); Hemoglobin 15.7 g/dL (12.0-15.0); Mean Corp Hgb Conc 32.1 g/dL (32-36); Mean Corpuscular Hgb 30.3 pg (27.0-32.0); Mean Corpuscular Volume 94.2 fL (81-99); Mean Platelet Vol. 9.4 fl (6.2-12.0); Platelet Count 240 K/mm3 (150-450); RBC Distribution Width CV 12.8 % (11.6-14.6); RBC Distribution Width SD 44.3 fl (35.1-43.9); Red Blood Count 5.19 M/mm3 (4.2-5.4)
[2022-06-12 16:53] LABS: Anion Gap 7 (5-15); BUN 17 mg/dL (7-18); BUN/Creat Ratio 17.5 RATIO (10-20); Calcium,Total 9.6 mg/dL (8.5-10.1); Chloride 104 mmol/L (98-107); Creatinine, Serum 0.97 mg/dL (0.55-1.02); EST Glomerular Filtration Rate 61 mL/min (>60); Est Glom Filt Rate - Afr Amer 73 mL/min (>60); Glucose 96 mg/dL (74-106); Potassium 4.1 mmol/L (3.5-5.1); Sodium Level 140 mmol/L (136-145)
--- NOTE | 2022-06-18 15:03 | HP.PCM_ITS ---
History and Physical Date of Admission: 06/21/22 DEEJAY VAZQUEZ, is a 66 F who presents to the [facility] today for an ablation. 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 She was scheduled to see the veterinary medical officer for an ablation and unfortunately this was postponed.? It however has been almost a year and she has had occasional recurrences and she takes a low-dose beta-sheldon for this.? She unfortunately continues to use tobacco products.? Her last echocardiogram was in January 2022.? She is amenable to having her SVT ablated here in [place].? From a cardiac standpoint, the patient is doing well. She does state that she has had 2-3 episodes of tachycardia in the last year. She did take an extra dose of metoprolol-which helped. She states the tachycardia lasted for about 1-2 hours-usually in the morning. She notes this is mostly after coffee. She denies any chest pain, pressure or heaviness. She does not have SOB, Orthopnea, and PND.? She denies any decrease in energy level, myalgias, or claudication.? She does not have edema, or sudden weight gain. She denies dizziness, lightheadedness, syncopal or near syncopal episodes, and headaches. Intake Vital Signs: See EMR Intake: Visit Reasons:?EP study/RFA Allergies No Known Allergies Allergy (Verified 01/09/22 15:08) Medications See EMR Ejection fraction %: 60 to 64 PFSH Medical History? Anemia Arthritis Back pain Bronchitis Calcaneus fracture, left Cardiology follow-up encounter Chronic cough Displaced fracture of left calcaneus History of echocardiogram History of edema History of steroid therapy History of stress test Hypokalemia Left shoulder pain Nicotine dependence Osteopenia Other acute postprocedural pain Paroxysmal supraventricular tachycardia Post-menopausal Smoker Thyroid disorder Vitamin D deficiency Vitamin D deficiency Walker as ambulation aid Wears glasses Surgical History? H/O lumpectomy H/O unilateral oophorectomy (2001) History of bilateral breast reduction surgery History of endometrial ablation History of tubal ligation Family History? Sister CVA (cerebral vascular accident) Arthritis Social History? Smoking Status:? Current every day smoker tobacco type: cigarettes Tobacco: How many years used:? 40 alcohol intake:? current alcohol intake frequency: holidays/special occasions only substance use type:? does not use what type of physical activity do you participate in:? walking and other details: yard work frequency:? daily ROS Const Const: Negative for fatigue, weakness, headache(s), frequent falls, difficulty sleeping or excessive sweating Eyes Eyes: Negative for loss of peripheral vision, transient loss of vision, blurry vision, double vision or tunnel vision ENT ENT: Negative for headache(s), dizziness, Nosebleed/epistaxis or balance problems Cardio Chest Pain: No Palpitations: Yes (every 4-6 weeks rate 150-170, becomes lightheaded last 2-3 hours) feels like its: fast and thumping Edema: None Muscle aches with walking: None Resp Respiratory: Negative for SOB with activity, SOB at rest, SOB orthopnea\SOB lying down, Cough or paroxysmal nocturnal dyspnea GI GI: Negative nausea, vomiting, heartburn or black,tarry stools : Negative for hematuria Musc Musc: Negative for muscle aches/ myalgia, muscle weakness, joint pain or balance problems Skin Skin: Negative non-healing lesions, rash or unusual bruising Neuro Neuro: Negative for dizziness, lightheadedness, near syncope, syncope, orthostatic symptoms, frequent falls, headache(s), weakness, confusion, memory loss, blurry vision, double vision, vertigo or lack of coordination Jaylon Hematologic/Lymphatic: Negative for easy bleeding or easy bruising Endo Endo: Negative for fatigue, excessive sweating, flushing or increased thirst/drinking Psych Psych: Negative for anxiety or depression Allergy Allergy/Immunology: Negative for hives and Negative for rash Cardiology Exam Const Appearance: cooperative and no acute distress Orientation: alert and oriented x3 Head Head: normal to inspection Ears: hearing grossly normal bilaterally Nose: external nose normal Face and Sinus: face symmetric Eyes General: appearance normal, both eyes and all related structures Eyelids: eyelids normal Conjunctivae: conjunctivae normal Pupils: PERRL and pupil size EOM: EOM intact bilaterally Neck Neck: normal visual inspection Carotids: Negative bruit Chest Chest inspection: normal inspection of the chest and normal respiratory effort Auscultation: Bilateral: Clear to Auscultation Cardio Palpation: normal PMI Rate: regular rate Rhythm: regular rhythm Heart sounds: S1 normal and S2 normal; Negative rub, gallop or murmur GI GI: normal to inspection and soft; Negative no hepatosplenomegaly Neuro General: patient alert, patient oriented x3 and CN's II-XI intact bilaterally Skin Skin: no rashes or lesions noted Extremities Pulses: Normal: Right Posterior Tibial Pulse, Left Posterior Tibial Pulse, Right Radial Pulse and Left Radial Pulse Lower Extremity Edema: None: Bilateral Psych Psychological: normal affect Supplemental Info Echocardiogram from 01/29/2022: Interpretation Summary Normal LV size. Left ventricular systolic function is normal. The estimated ejection fraction is 55 %. Pulmonary artery systolic pressure is 26 mmHg. Echocardiogram from 05/07/2018: Normal LV size. The estimated ejection fraction is 60 %. Left ventricular systolic function is normal. No evidence for diastolic dysfunction. Structurally normal valves. Stress test from 05/07/2018: Exercise myocardial perfusion stress test. 62-year-old lady with a history of supraventricular tachycardia. Medications none. Stress protocol: Resting EKG demonstrates sinus bradycardia with a rate of 57 bpm occasional premature ventricular complexes noted.? The patient exercised according to the regular Enrrique protocol for a total duration of 9 minutes.? The maximum heart rate attained was 133 bpm which was 84% of maximum predicted heart rate the maximum workload was 10.1 metabolic equivalents.? At rest there were no ST or T wave changes noted suggest ischemia at peak exercise upsloping ST changes only were noted with normally the criteria for ischemia.? Occasional premature ventricular complexes were noted.? There were no ST or T wave changes noted suggest abnormal flow reserve or ischemia.? The resting blood pressure is 108/80 with a peak blood pressure 170/86. Myocardial perfusion protocol. 11.4 mCi of technetium 99m sestamibi was injected at rest.? The patient exercised for total duration of 9 minutes at peak exercise 31.9 mCi of technetium 99m sestamibi was injected stress images were obtained stress and rest images were reconstructed and compared in the short axis vertical long horizontal long axis.? Gated images were also obtained Perfusion SPECT analysis: Review of the stress images demonstrate normal uptake of tracer noted in all areas of the myocardium.? The resting images similarly demonstrate normal uptake of tracer noted in all areas of myocardium.? There may be mild anterior breast wall attenuation noted.? No obvious reversibility is noted suggest ischemia. Gated SPECT analysis: The gated ejection fraction is noted to be 73%. Conclusion: Normal exercise myocardial perfusion stress test at a high workload. Preserved ejection fraction. No arrhythmias noted. Assessment and Plan Assessment and Plan (1) Paroxysmal supraventricular tachycardia: ?Status:?Chronic ?Plan: She does have paroxysms of supraventricular tachyarrhythmia.? She has not had any recurrences which have been sustained recently.? However she has had episodes and I would recommend at this time that we consider her for an SVT ablation here locally.? In preparation, she underwent an echocardiogram on 01/29/2022 that showed an ejection fraction of 55%, normal RV size and function, and normal left and right atrium size. No significant valvular abnormalities were noted.
[2022-06-20 07:24] VITALS: BMI 21.4
--- NOTE | 2022-06-21 12:39 | EX.ELECTROPH ---
Electrophysiology Report Electrophysiology Report The patient has recurrent SVT and here for electrophysiology testing and catheter ablation After informed consent and she was brought to the catheterization laboratory at [facility]. The right groin was prepped and draped in usual sterile manner. Intermittent boluses of Versed and fentanyl were used for sedation. Using ultrasound guidance the right femoral vein was cannulated with a 12 [place] Tri-Port sheath. Heparin was administered. Through the Tri-Port sheath a quadripolar catheter was placed in the high right atrium and the right ventricle a deflectable decapolar catheter was placed in the hiss. Programmed stimulation was performed of the atrium and the ventricle for tachycardia induction both at the baseline state and during Isuprel infusion. Mapping was completed using multisite mapping of the right atrium coronary sinus and left atrium via the coronary sinus. Baseline results are TN interval 146 QRS 84 QRS morphology is normal QT is 410. Sinus cycle length is 960 AH is 80 HV is 40 maximum SNRT is 110 the corrected SNRT is 150 AV block cycle length is 540 VA block cycle length is 470 with decremental conduction that is concentric. The AV node ERP is 310 at 700 there is a dual AV node physiology with a AV lang jump at [address] cycle length of 700. Tachycardia was reproducibly inducible with a cycle length of 550 ms pacing from the RV apex confirmed cristine due to typical AVNRT with a VAV response and a prolonged PPI minus TCL of 150 ms. Indcution was dependent upon a long AH interval. A 4 mm FJ ablation catheter, nonirrigated, was positioned and detailed mapping was completed of the AV junction hiss bundle coronary sinus roof and floor as well as the coronary sinus body in the right atrium. RF ablation parameters were 50 W at 52 degrees for 60 seconds. Multiple radiofrequency ablations were delivered at the anterior aspect of the coronary sinus os resulting in multiple episodes of junctional ectopy with stable VA conduction and no VA block. There is no AV block. Testing performed in the baseline state shows no inducible tachycardia and a single AV lang echo beat. Testing was then performed on Isuprel at 3 mcg/min the sinus cycle length was 730 the AH was 5 5 the HV was 40 the AV block cycle length was 370 the AV node ERP was less than [address] cycle length of 600. There was no dual AV node physiology there was no AV lang echo beats there is no inducible tachycardia. Conclusions the patient had a easily and reproducible induction of typical AV lang reentrant tachycardia with successful slow pathway ablation completed without complications. Post ablation with and without Isuprel there is no further induction of this or any other tachycardia
== END 2022-06-21 16:00 | disposition home or self-care (01) ==
LOC: CLSP 09:01
PROVIDERS: Internal Medicine Cardiovascular Disease; PCP Internal Medicine; Referring Provider Internal Medicine Cardiovascular Disease; Visit Provider Internal Medicine Cardiovascular Disease
DX: I47.1 Supraventricular tachycardia (principal); F17.210 Nicotine dependence, cigarettes, uncomplicated
CPT/HCPCS: 36415; 71046; 80048; 85027; 93005; 93609; 93623; 93653; 99152; 99153; C1725; C1730; C1732; C1733; C1894

== ENCOUNTER → 2024-07-07 | Outpatient (CLI) | payer MEDICARE, SELFPAY ==
--- NOTE | 2024-07-07 15:22 | RAD_ITS ---
PROCEDURE: ANKLE MIN 3 VIEWS 07/07/2024 REASON FOR EXAM: PAIN Palpable painful lump. TECHNIQUE: 3 views of the right ankle were obtained. COMPARISON: None FINDINGS: Needle palpable lump corresponds to a 9 mm well-defined nodule deep in the soft tissues overlying the distal 1/3 of the right fibula. RAD/Ankle min 3 Views IMPRESSION: The palpable lump corresponds to a 9 mm well-defined nodule deep in the soft ti ssues overlying the distal 1/3 of the right fibula. Reading Location: [id number]
== END | disposition home or self-care (01) ==
LOC: MTRAD 15:21
PROVIDERS: PCP Internal Medicine; Referring Provider Physician Assistant; Visit Provider Physician Assistant
DX: M25.571 Pain in right ankle and joints of right foot (principal)
CPT/HCPCS: 73610

== ENCOUNTER → 2024-09-09 | Outpatient (CLI) | payer MEDICARE, SELFPAY ==
[2024-09-09 17:09] LABS: Absolute Lymphocyte Count 2.43 X10^3/uL (0.83-4.51); Basophil# 0.03 X10^3/uL; Basophil% 0.4 % (0-1); Eosinophil# 0.07 X10^3/uL; Hematocrit 44.6 % (37-47); Lymphocyte # 2.43 X10^3/ul (0.83-4.51); Lymphocyte % 33.8 % (19-41); Mean Corp Hgb Conc 33.6 g/dL (32-36); Mean Corpuscular Hgb 31.6 pg (27.0-32.0); Mean Corpuscular Volume 93.9 fL (81-99); Mean Platelet Vol. 9.6 fl (6.2-12.0); Monocyte# 0.62 X10^3/uL; Monocyte% 8.6 % (0-10); NRBC Flagged by Analyzer 0 % (0-5); Neutrophil # 4.03 X10^3/uL (2.7-7.7); Neutrophil % 55.9 % (47-70); Platelet Count 225 K/mm3 (150-450); RBC Distribution Width CV 12.8 % (11.6-14.6); Red Blood Count 4.75 M/mm3 (4.2-5.4); White Blood Count 7.2 K/mm3 (4.4-11.0)
[2024-09-09 17:23] LABS: ALB/GLOB Ratio 1.9 RATIO (0.9-2.4); AST(SGOT) 31 U/L (<=31); Alanine Aminotransfer ALT/SGPT 21 U/L (<=34); Albumin, Serum 4.4 g/dL (3.4-4.8); Alkaline Phosphatase 102 U/L (35-104); Anion Gap 13 (5-15); BUN 12 mg/dL (4-19); BUN/Creat Ratio 13.6 RATIO (10-20); Calcium,Total 9.8 mg/dL (7.6-11.0); Carbon Dioxide 26.4 mmol/L (21.0-32.0); Chloride 100 mmol/L (98-108); Creatinine, Serum 0.91 mg/dL (0.70-1.20); EST Glomerular Filtration Rate 68 (>60); Globulin 2.4 g/dL (2.2-4.2); Glucose 135 mg/dL (70-99); Potassium 3.9 mmol/L (3.3-5.1); Protein, Total 6.8 g/dL (5.9-8.4); Sodium Level 140 mmol/L (133-145); Total Bilirubin 0.36 mg/dL (0.00-1.30); Vitamin D,25 Hydroxy 25.1 ng/mL (30-100)
== END | disposition home or self-care (01) ==
LOC: BIMLAB 14:34
PROVIDERS: PCP Internal Medicine; Referring Provider Internal Medicine; Visit Provider Internal Medicine
DX: M85.80 Other specified disorders of bone density and structure, unspecified site (principal); E07.9 Disorder of thyroid, unspecified
CPT/HCPCS: 36415; 80053; 82306; 84439; 84443; 85025

== ENCOUNTER → 2024-09-24 | Outpatient (CLI) | payer MEDICARE, SELFPAY ==
--- NOTE | 2024-09-24 16:00 | BD_ITS ---
PROCEDURE: DEXA BONE DENSITY STUDY 09/24/2024 REASON FOR EXAM: POST MENOPAUSAL F, age 69 y/o . Osteopenia. TECHNIQUE: DEXA BONE DENSITY STUDY COMPARISON: November 18, 2019 FINDINGS: BMD and T-SCORES Lumbar spine: 0.758 g/cm2, T-score -2.4 Levels: L1 through L4 Change from prior: Decreased from previous of -1.7 to current -2.4. Left femoral neck: 0.561 g/cm2, T-score -2.6 Femoral neck comparison data not recommended for monitoring change. Prior T-score -2.2 Left total hip: -0 608 g/cm2, T-score -2.7 Change from prior: Decreased from -1.7 to current -2.3. Right femoral neck: 0.680 g/cm2, T-score -1.5 Femoral neck comparison data not recommended for monitoring change. Prior T-score -1.6 Right total hip: 0.667 g/cm2, T-score - 2.3 Change from prior: Decrease from to -2.3 from -1.7. The World Health Organization has defined the following categories based on bone density: Normal bone density: T-score equal to or greater than -1.0 Osteopenia: T-score between -1.0 and -2.5 Osteoporosis: T-score equal to or less than -2.5 FRAX (or Comparable) Fracture Risk Assessment: 10 Year Probability of Fracture: Major Osteoporotic Fracture: 23% Hip Fracture: 8.8% (Note: FRAX is not to be reported in setting of normal range bone density, osteoporosis on DEXA, known history of osteoporosis, prior osteoporotic hip or vertebral fracture, or for any patient undergoing pharmacological treatment for bone loss.) The National Osteoporosis Foundation (NOF) recommends pharmacological treatment for patients with a FRAX 10-year risk of 3% or higher for a hip fracture, or 20% or higher for a major osteoporotic fracture, to prevent osteoporosis and reduce fracture risk. The patient does meet the pharmacological treatment recommendations for prevention of osteoporosis. BD/Dexa Bone Density Study IMPRESSION: OSTEOPOROSIS. In the lumbar spine and hips Recommend follow-up as clinically warranted. Reading Location: [facility]
--- NOTE | 2024-09-24 16:30 | BI_ITS ---
EXAM: SCRN MAMM (CAD)W/COREY BILAT DATE: 09/24/2024 CLINICAL HISTORY: F, Age 69 y/o , BREAST CANCER SCREENING BREAST CANCER RISK ASSESSMENT: Na TECHNIQUE: Bilateral screening digital breast tomosynthesis with 2D and 3D images. Computer aided detection. COMPARISON: Prior exam(s) were compared FINDINGS: TISSUE DENSITY: The breast tissue is extremely dense which lowers the sensitivity of mammography. Bilateral Breast Mammographic Findings: No suspicious masses, calcifications or other abnormalities are identified. BI/SCRN MAMM (CAD)W/COREY BILAT IMPRESSION: No mammographic evidence of malignancy in either breast. OVERALL FINAL ASSESSMENT BI-RADS 1: NEGATIVE. RECOMMEND ANNUAL MAMMOGRAPHIC SCREENING. RECOMMENDATION: Routine annual follow-up in 1 Year A letter with findings and recommendations will be mailed to the patient. Reading Location: [id number]
== END | disposition home or self-care (01) ==
LOC: OPBI 15:56
PROVIDERS: PCP Internal Medicine; Referring Provider Internal Medicine; Visit Provider Internal Medicine
DX: Z12.31 Encounter for screening mammogram for malignant neoplasm of breast (principal); Z78.0 Asymptomatic menopausal state
CPT/HCPCS: 77063; 77067; 77080

== ENCOUNTER → 2025-01-13 | Outpatient (CLI) | payer MEDICARE, SELFPAY ==
--- NOTE | 2025-01-13 08:35 | RAD_ITS ---
PROCEDURE: ESOPHAGUS DUAL CONTRAST 01/13/2025 REASON FOR EXAM: DYSPHAGIA TECHNIQUE: ESOPHAGUS DUAL CONTRAST FLUOROSCOPIC TIME: 1 minute 51 seconds. FLUOROGRAPHIC IMAGES: Numerous. Dose: 25.5 dGy-cm2. COMPARISON: None. FINDINGS: Limited evaluation of the swallowing mechanism shows no significant abnormality. A mildly prominent cricopharyngeus muscle is seen. The esophagus shows no area of persistent narrowing. No mucosal abnormality is seen. Easy passage of the 13 mm barium tablet into the stomach was seen. During the time of imaging, gastroesophageal reflux was not elicited. Limited imaging of the stomach and duodenum show no significant abnormality. RAD/Esophagus Dual Contrast IMPRESSION: 1. Mildly prominent cricopharyngeus muscle. 2. No gastroesophageal reflux was elicited during the limited time of the evalu ation. 3. No evidence of esophageal stenosis or narrowing of the esophagogastric junct ion. Reading Location: [place] [id number]
== END | disposition home or self-care (01) ==
PROVIDERS: PCP Internal Medicine; Referring Provider Internal Medicine Gastroenterology; Visit Provider Internal Medicine Gastroenterology
DX: R13.10 Dysphagia, unspecified (principal)
CPT/HCPCS: 74221